=== PATIENT | female | born 1955 | race African-American/Black ===

== ENCOUNTER 2016-09-09 06:42 | Emergency (ER) | payer SELFPAY ==
[~2016-09-09] VITALS: Ht 175.3 cm; Wt 80.0 kg
[~2016-09-09 06:42] MED LIST: ASPIRIN81 MG PO; BACTRIM DS1 TAB PO; CEPHALEXIN500 MG PO; CIPROFLOXACN500 MG PO; LORTAB 10-325 M1 TAB PO; LORTAB 5/3255 MG PO; MACROBID100 MG PO; PYRIDIUM200 MG PO; TORADOL PO
[2016-09-09 07:47] LABS: HEMATOCRIT 31.6 % (37.0-47.0); HEMOGLOBIN 10.8 g/dl (12.0-16.0); IMMATURE GRANULOCYTES 0.2 % (0.0-1.0); MEAN CELL VOLUME 87.3 fL CALC (80.0-100.0); MEAN CORPUSCULAR HGB 29.8 pG CALC (26.0-32.0); MEAN CORPUSCULAR HGB CONC 34.2 g/L CALC (32.0-36.0); NEUT# 2.1 thou/uL (2.00-7.15); RED BLOOD COUNT 3.62 mill/uL (4.20-5.60); RED CELL DISTRI WIDTH 15.4 % (11.5-15.5)
[2016-09-09 08:02] LABS: URINE BILIRUBIN - DIPSTICK NEGATIVE (NEGATIVE); URINE BLOOD DIPSTICK LARGE (NEGATIVE); URINE CLARITY TURBID; URINE COLOR BROWN; URINE GLUCOSE - DIPSTICK NEGATIVE (NEGATIVE); URINE KETONE NEGATIVE (NEGATIVE); URINE NITRITE - DIPSTICK NEGATIVE (Negative); URINE PROTEIN - DIPSTICK 100 mg/dL (NEG-TRACE); URINE SPECIFIC GRAVITY 1.015
[2016-09-09 08:02] LABS: ALBUMIN 3.5 g/dL (3.2-5.0); ALKALINE PHOSPHATASE 136 u/l (38-126); ANION GAP 16 (6-22 (CALC)); BILIRUBIN, TOTAL 1.5 mg/dL (0.0-1.4); BUN 4 mg/dL (7-17); BUN/CREATININE RATIO 7 (12-20 (CALC)); CALCIUM 8.3 mg/dL (8.4-10.2); CARBON DIOXIDE 24 mmol/l (22-30); CHLORIDE 102 mmol/l (95-108); CREATININE 0.6 mg/dL (0.5-1.0); GFR > 60 ML/MIN (>=60 (CALC)); GFR FOR AFR.AMER. > 60 ML/MIN (>=60 (CALC)); GLUCOSE 118 mg/dL (65-105); SGOT/AST 200 u/l (14-36); SGPT/ALT 60 u/l (9-52); SODIUM 139 mmol/l (137-146); TOTAL PROTEIN 10.3 g/dL (6.3-8.2)
[2016-09-09 08:04] LABS: URINE LEUK ESTERASE MODERATE (NEGATIVE)
[2016-09-09 08:05] LABS: URINE BACTERIA FEW hpf; URINE RBC >100 RBC/hpf (0-5); URINE SQUAMOUS EPITHELIAL CELL FEW EPI/hpf (0-FEW)
[2016-09-09 08:06] LABS: URINE RED BLOOD CELL CAST FEW lpf
[2016-09-09 09:01] LABS: AMYLASE 111 u/l (30-110); LIPASE 177 u/l (23-300)
[2016-09-09] MEDS ORDERED: CIPROFLOXACN500 MG PO (09:38)
[2016-09-09] MEDS ORDERED: ULTRAM50 M1 PO (09:38)
[2016-09-09] MEDS ORDERED: PYRIDIUM200 MG PO (09:38)
[2016-09-09 10:35] VITALS: BP 140/84
== END 2016-09-09 10:48 | disposition home or self-care (01) | DRG 690 ==
LOC: ED 06:42
PROVIDERS: Emergency Medicine
PROC: 0T9B70Z Drainage of Bladder with Drainage Device, Via Natural or Artificial Opening (ICD-10-PCS; principal; 2016-09-09)
PROC: 0T9B70Z Drainage of Bladder with Drainage Device, Via Natural or Artificial Opening (ICD-10-PCS; 2016-09-09)
DX: N39.0 Urinary tract infection, site not specified (principal); B96.1 Klebsiella pneumoniae [K. pneumoniae] as the cause of diseases classified elsewhere; R10.2 Pelvic and perineal pain; R33.9 Retention of urine, unspecified; R30.0 Dysuria
CPT/HCPCS: Q9967

== ENCOUNTER 2016-09-09 13:43 | Emergency (ER) | payer SELFPAY ==
[~2016-09-09] VITALS: Ht 175.3 cm; Wt 75.0 kg
[~2016-09-09 13:43] MED LIST changes: +ULTRAM50 M1 PO
[2016-09-09 15:55] VITALS: BP 110/62
== END 2016-09-09 16:18 | disposition home or self-care (01) | DRG 690 ==
LOC: ED 13:43
PROC: 0T9B70Z Drainage of Bladder with Drainage Device, Via Natural or Artificial Opening (ICD-10-PCS; principal; 2016-09-09)
DX: N39.0 Urinary tract infection, site not specified (principal); R30.0 Dysuria; R33.9 Retention of urine, unspecified

== ENCOUNTER 2016-09-11 14:07 | Emergency (ER) | payer SELFPAY ==
[~2016-09-11] VITALS: Ht 175.3 cm; Wt 75.0 kg
[2016-09-11 15:16] VITALS: BP 113/72
== END 2016-09-11 15:19 | disposition home or self-care (01) | DRG 700 ==
LOC: ED 14:07
PROC: 3C1ZX8Z Irrigation of Indwelling Device using Irrigating Substance, External Approach (ICD-10-PCS; principal; 2016-09-11)
DX: T83.098A Other mechanical complication of other urinary catheter, initial encounter (principal)

== ENCOUNTER 2016-09-19 15:51 | Emergency (ER) | payer SELFPAY ==
[~2016-09-19] VITALS: Ht 175.3 cm; Wt 75.0 kg
[2016-09-19 16:39] VITALS: BP 103/65
== END 2016-09-19 17:01 | disposition home or self-care (01) | DRG 700 ==
LOC: ED 15:51
DX: Z46.6 Encounter for fitting and adjustment of urinary device (principal)

== ENCOUNTER 2016-10-17 04:55 | Emergency (ER) | payer SELFPAY ==
[~2016-10-17] VITALS: Ht 175.3 cm; Wt 167.0 kg
[2016-10-17 05:23] LABS: URINE BILIRUBIN - DIPSTICK NEGATIVE (NEGATIVE); URINE BLOOD DIPSTICK NEGATIVE (NEGATIVE); URINE COLOR YELLOW; URINE GLUCOSE - DIPSTICK NEGATIVE (NEGATIVE); URINE KETONE NEGATIVE (NEGATIVE); URINE PROTEIN - DIPSTICK NEGATIVE (NEG-TRACE)
[2016-10-17 05:24] LABS: URINE LEUK ESTERASE SMALL (NEGATIVE); URINE NITRITE - DIPSTICK POSITIVE (Negative)
[2016-10-17 05:28] LABS: URINE BACTERIA MANY hpf; URINE MUCUS FEW hpf (NONE-FEW); URINE RBC 0-2 RBC/hpf (0-5); URINE SQUAMOUS EPITHELIAL CELL FEW EPI/hpf (0-FEW)
[2016-10-17 05:29] LABS: URINE AMORPH SEDIMENT MODERATE hpf (NONE-FEW); URINE CLARITY SLIGHT CLOUDY
[2016-10-17 05:34] LABS: ALBUMIN 3.2 g/dL (3.2-5.0); ALKALINE PHOSPHATASE 218 u/l (38-126); AMYLASE 101 u/l (30-110); ANION GAP 15 (6-22 (CALC)); BILIRUBIN, TOTAL 1.8 mg/dL (0.0-1.4); BUN 5 mg/dL (7-17); BUN/CREATININE RATIO 7 (12-20 (CALC)); CALCIUM 8.1 mg/dL (8.4-10.2); CARBON DIOXIDE 26 mmol/l (22-30); CHLORIDE 109 mmol/l (95-108); CREATININE 0.6 mg/dL (0.5-1.0); GFR > 60 ML/MIN (>=60 (CALC)); GFR FOR AFR.AMER. > 60 ML/MIN (>=60 (CALC)); GLUCOSE 109 mg/dL (65-105); LIPASE 244 u/l (23-300); POTASSIUM 3.4 mmol/l (3.5-5.1); SGOT/AST 118 u/l (14-36); SGPT/ALT 43 u/l (9-52); SODIUM 146 mmol/l (137-146); TOTAL PROTEIN 9.1 g/dL (6.3-8.2)
[2016-10-17 05:39] LABS: HEMATOCRIT 30.3 % (37.0-47.0); HEMOGLOBIN 10.3 g/dl (12.0-16.0); MEAN CELL VOLUME 89.9 fL CALC (80.0-100.0); MEAN CORPUSCULAR HGB 30.6 pG CALC (26.0-32.0); NEUT# 4.78 thou/uL (2.00-7.15); RED BLOOD COUNT 3.37 mill/uL (4.20-5.60); RED CELL DISTRI WIDTH 20.4 % (11.5-15.5)
[2016-10-17] MEDS ORDERED: TRAMADOL HYDROC50 MG PO (08:17)
[2016-10-17] MEDS ORDERED: ZOFRAN ODT4 MG PO (08:17)
[2016-10-17] MEDS ORDERED: NEXIUM40 M1 PO (08:17)
[2016-10-17 08:22] VITALS: BP 127/86
== END 2016-10-17 08:49 | disposition home or self-care (01) | DRG 392 ==
LOC: ED 04:55
PROVIDERS: Emergency Medicine
DX: R10.13 Epigastric pain (principal); K70.30 Alcoholic cirrhosis of liver without ascites; R11.2 Nausea with vomiting, unspecified
CPT/HCPCS: Q9967; S0164

== ENCOUNTER 2017-05-23 09:28 | Inpatient (IN) | payer SELFPAY ==
[~2017-05-23] VITALS: Ht 175.3 cm; Wt 71.0 kg
[~2017-05-23 09:28] MED LIST changes: +NEXIUM40 M1 PO; +TRAMADOL HYDROC50 MG PO; +ZOFRAN ODT4 MG PO
--- NOTE | 2017-05-23 09:38 | NUR ---
WHEELCHAIR TO ER ROOM 14, TO BED
--- NOTE | 2017-05-23 09:46 | NUR ---
TO TX ROOM VIA W/C. ALERT.
--- NOTE | 2017-05-23 10:06 | NUR ---
BEDSIDE REPORT TO Yocasta HARRY RN , CARE RELINQUISHED
[2017-05-23 10:14] LABS: HEMATOCRIT 32.8 % (37.0-47.0); HEMOGLOBIN 11.3 g/dl (12.0-16.0); IMMATURE GRANULOCYTES 0.5 % (0.0-1.0); MEAN CELL VOLUME 91.4 fL CALC (80.0-100.0); MEAN CORPUSCULAR HGB 31.5 pG CALC (26.0-32.0); MEAN CORPUSCULAR HGB CONC 34.5 g/L CALC (32.0-36.0); NEUT# 2.48 thou/uL (2.00-7.15); RED BLOOD COUNT 3.59 mill/uL (4.20-5.60); RED CELL DISTRI WIDTH 17.2 % (11.5-15.5)
--- NOTE | 2017-05-23 10:25 | NUR ---
RECVD REPORT FROM JORGE A RAMIRES. PT SLEEPING IN BED BUT EASILY AROUSED. DISCUSSED POC WIHT PT & . NO NEEDS/ NEW CONCERNS AT THIS TIME. CALLBELL WITHIN REACH.
[2017-05-23 10:31] LABS: ALBUMIN 3.5 g/dL (3.2-5.0); ALKALINE PHOSPHATASE 143 u/l (38-126); ANION GAP 17 (6-22 (CALC)); BILIRUBIN, TOTAL 1.9 mg/dL (0.0-1.4); BUN 4 mg/dL (7-17); BUN/CREATININE RATIO 7 (12-20 (CALC)); CALCIUM 8.9 mg/dL (8.4-10.2); CARBON DIOXIDE 23 mmol/l (22-30); CHLORIDE 104 mmol/l (95-108); CREATININE 0.5 mg/dL (0.5-1.0); GFR > 60 ML/MIN (>=60 (CALC)); GFR FOR AFR.AMER. > 60 ML/MIN (>=60 (CALC)); GLUCOSE 112 mg/dL (65-105); LIPASE 172 u/l (23-300); MAGNESIUM 1.6 mg/dL (1.6-2.3); SGOT/AST 131 u/l (14-36); SGPT/ALT 38 u/l (9-52); SODIUM 141 mmol/l (137-146); TOTAL PROTEIN 9.5 g/dL (6.3-8.2)
--- NOTE | 2017-05-23 11:06 | NUR ---
, SONA , WENT TO GET SOMETHING TO EAT THEN WILL COME BACK.
--- NOTE | 2017-05-23 12:02 | NUR ---
PT IVF TAKEN OFF PUMP AND RUNNING GRAVITY BC PT KEEPS BENDING HER ARM. PT STILL DROWSY SINCE ATIVAN. SLEEPY BUT EASILY AWAKEN. ABD HARD, SWOLLEN, & TENDER. PT DENIES PAIN. DENIES N/V/D.
--- NOTE | 2017-05-23 12:35 | NUR ---
[facility] @ BEDSIDE. OUT THE DOOR AT [address] AT [facility] IN STABLE CONDITION.
--- NOTE | 2017-05-23 13:37 | NUR ---
PT STILL OUT OF UNIT FOR TESTING.
--- NOTE | 2017-05-23 16:31 | NUR ---
SBAR PRINTED TO FLOOR
--- NOTE | 2017-05-23 16:55 | NUR ---
Admission Note Report Given to: Transported by: Wheelchair X Stretcher Transported with: X Nurse Transporter X Patent IV O2 X Gre Instructor
--- NOTE | 2017-05-23 17:03 | NUR ---
female pt received to ICU bed 2 via stretcher accompanied by Yao Saab RN; pt attempt ambulation; max assist to bed d/t unsteady weak gait; admission assessment completed at this time; pt alert and oriented; c/c of abd pain for "a few weeks" and poor apetite for "a couple of months"; denies n/v; resp even and unlabored; lungs clear bilat; skin color wnl; ra; hr reg; strong pulses; no edema noted; st on monitor; abd firm/distended with bs present; pt admits to soft bm 05/23/17; admits to voiding without pain or burning; no urine to inspect at this time; #20 in lac patent with ivf infusing without complication; no redness or edema noted at site; dry flaky skin noted to chest wall, breast and bilat upper arm; pt noted to drag rle; ambulates with cane; pt admits to questionable "stroke and few months ago"; pt denies seeking medical attention but states "her sister is a nurse a told her she had a stroke"; s/o admits to wanting pt checked for "diabetes and gout" because "she may not have had a stroke"; pt is a poor historian/ sign other at bedside to assist with past history; plan of care/ ivf explained; pt encouraged to use call light; will continue to monitor
[2017-05-23 17:15] VITALS: BP 137/87
[2017-05-23 17:30] VITALS: BP 126/94
[2017-05-23 17:45] VITALS: BP 119/98
--- NOTE | 2017-05-23 17:50 | NUR ---
pt noted incont of lg loose/watery brown stool; mucus noted; specimen obtained; awaiting stool orders; pericare per functional tester typewriters; will continue to monitor
[2017-05-23 18:00] VITALS: BP 111/76
--- NOTE | 2017-05-23 18:05 | NUR ---
Dr Rice notified of pt arrival to unit; informed of potential needs; also informed pt noted with diarrhea; orders received
--- NOTE | 2017-05-23 18:12 | NUR ---
pt resting in bed; offers no complaints; s/o at bedside; no distress noted; st on monitor; iv patent; no redness or edema noted at site; bed in lowest position; call light within reach
[2017-05-23 18:51] LABS: C. DIFFICILE TOXIN A&B NEGATIVE (NEGATIVE)
--- NOTE | 2017-05-23 19:05 | NUR ---
Dr Rice at bedside;
--- NOTE | 2017-05-23 19:30 | NUR ---
PT SITTING UP IN BED. SIGNIFICANT OTHER AT BEDISDE. PT IS ALERT AND ORIENTED X3. PERRLA. RESP ARE EVEN AND UNLABORED. LUNGS ARE CLEAR. HR REGULAR. PULSES PALPABLE THROUGHOUT. NO EDEMA NOTED. BS ACTIVE. PT REPORTS A BOWEL MOVEMENT EARLIER TODAY. PT REPORTS ABD PAIN IN THE LOWER QUADRANTS. #20 LAC WITH VITAMIN BAG INFUSING AT 100CC/HR. NO REDNESS OR EDEMA NOTED AT SITE. ABD IS FIRM AND DISTENDED. WILL CONTINUE TO MONITOR
[2017-05-23 19:56] LABS: INTERNATIONAL NORMALIZED RATIO 1.6 RATIO (0.7-1.3); PROTHROMBIN TIME 18.5 SECONDS (9.0-12.5)
[2017-05-23 20:00] VITALS: BP 113/72
--- NOTE | 2017-05-23 21:12 | NUR ---
TEMP OF 101.2. DR CHANG NOTIFIED. ORDERS RECEIVED.
[2017-05-23 21:39] LABS: URINE BLOOD DIPSTICK TRACE-INTACT (NEGATIVE); URINE COLOR YELLOW; URINE GLUCOSE - DIPSTICK NEGATIVE (NEGATIVE); URINE KETONE TRACE mg/dL (NEGATIVE); URINE LEUK ESTERASE TRACE (NEGATIVE); URINE NITRITE - DIPSTICK NEGATIVE (Negative); URINE PROTEIN - DIPSTICK NEGATIVE (NEG-TRACE)
--- NOTE | 2017-05-23 21:40 | NUR ---
LAB INTO ROOM TO DRAW BLOOD CULTURES.
[2017-05-23 21:43] LABS: URINE BILIRUBIN - DIPSTICK NEGATIVE (NEGATIVE); URINE CLARITY CLEAR
[2017-05-23 22:00] VITALS: BP 121/85
--- NOTE | 2017-05-23 22:53 | NUR ---
TEMP RECHECK 100.7. ASKED PT TO REMAIN WITH JUST THE SHEET.
--- NOTE | 2017-05-23 23:43 | NUR ---
PT RESTING IN BED WITH EYES CLOSED. AROUSES TO VERBAL STIMULI. RESP ARE EVEN AND UNLABORED. NO DISTRESS NOTED. VOICES NO COMPLAINTS AT THIS TIME. TEMP RECHECK. 99.8. WILL CONTINUE TO MONITOR
[2017-05-24] VITALS (14 sets, daily range): BP systolic 111–155; BP diastolic 74–111
--- NOTE | 2017-05-24 02:04 | NUR ---
PT RESTING IN BED WITH EYES CLOSED. SIGNIFICANT OTHER AT BEDSIDE. PT AROUSES TO VERBAL STIMULI. RESP ARE EVEN AND UNLABORED. PT VOICES NO COMPLAINTS AT THIS TIME. WILL CONTINUE TO MONITOR
--- NOTE | 2017-05-24 04:00 | NUR ---
PT RESTING IN BED TALKING WITH SIGNIFICANT OTHER AT BEDSIDE. VOICES NO COMPLAINTS AT THIS TIME. IV IS POSITIONAL. WILL REMOVE AND START A NEW IV. WILL CONTINUE TO MONITOR
--- NOTE | 2017-05-24 04:09 | NUR ---
#20 PLACED IN LEFT HAND OF PATIENT X1 ATTEMPT. #20 REMOVED FROM LAC CATH TIP INTACT. PT TOLERATED WELL.
--- NOTE | 2017-05-24 04:25 | NUR ---
LAB INTO ROOM TO DRAW AM LABS
[2017-05-24 05:33] LABS: HEMATOCRIT 30.7 % (37.0-47.0); HEMOGLOBIN 10.2 g/dl (12.0-16.0); MEAN CELL VOLUME 93.6 fL CALC (80.0-100.0); MEAN CORPUSCULAR HGB 31.1 pG CALC (26.0-32.0); MEAN CORPUSCULAR HGB CONC 33.2 g/L CALC (32.0-36.0); RED BLOOD COUNT 3.28 mill/uL (4.20-5.60); RED CELL DISTRI WIDTH 18.3 % (11.5-15.5)
[2017-05-24 05:38] LABS: ALBUMIN 2.7 g/dL (3.2-5.0); ALKALINE PHOSPHATASE 81 u/l (38-126); ANION GAP 14 (6-22 (CALC)); BILIRUBIN, TOTAL 1.6 mg/dL (0.0-1.4); BUN 3 mg/dL (7-17); BUN/CREATININE RATIO 6 (12-20 (CALC)); CALCIUM 7.8 mg/dL (8.4-10.2); CARBON DIOXIDE 23 mmol/l (22-30); CHLORIDE 105 mmol/l (95-108); CREATININE 0.6 mg/dL (0.5-1.0); GFR > 60 ML/MIN (>=60 (CALC)); GFR FOR AFR.AMER. > 60 ML/MIN (>=60 (CALC)); GLUCOSE 75 mg/dL (65-105); POTASSIUM 3.2 mmol/l (3.5-5.1); SGOT/AST 89 u/l (14-36); SGPT/ALT 32 u/l (9-52); SODIUM 138 mmol/l (137-146)
[2017-05-24 05:40] LABS: INTERNATIONAL NORMALIZED RATIO 1.7 RATIO (0.7-1.3); PROTHROMBIN TIME 19.4 SECONDS (9.0-12.5)
--- NOTE | 2017-05-24 06:00 | NUR ---
PT RESTING IN BED WITH EYES CLOSED. AROUSES TO VERBAL STIMULI. RESP ARE EVEN AND UNLABORED. VOICES NO COMPLAINTS AT THIS TIME. WILL CONTINUE TO MONITOR
--- NOTE | 2017-05-24 07:01 | NUR ---
pt awake in bed; no distress noted; pt offers no complaints; assessment completed at this time; pt alert and oriented; denies pain but noted rubbing abdomen; no n/v noted; resp even and unlabored; lungs clear bilat; skin color wnl; ra; hr reg; strong pulses; no edema noted; st on monitor; abd firm/ distended with bs present; no bm noted per medical technical writer; pt admits to voiding without complication; no urine to inspect at this time; bsc; #20 in lh patent; ivf infusing without complication; no redness or edema noted at site; dry flaky skin noted to upper torso and bilat arms; plan of care/ am meds explained; call light within reach; will continue to monitor
--- NOTE | 2017-05-24 08:10 | NUR ---
am medications explained and administered; pt offers no complaints; st on monitor; s/o at bedside; call light within reach; will continue to monitor
--- NOTE | 2017-05-24 10:05 | NUR ---
resting in bed; offers no complaints; iv patent; no redness or edema noted at site; s/o at bedside; st on monitor; call light within reach; will continue to monitor
--- NOTE | 2017-05-24 10:20 | NUR ---
Dr Glass at bedside; no orders received
--- NOTE | 2017-05-24 10:30 | NUR ---
Dr Rice informed of Dr Glass's visit; orders received
--- NOTE | 2017-05-24 10:40 | NUR ---
received call from [employer]; pt is to go for HIDA scan at 1pm;
--- NOTE | 2017-05-24 10:45 | NUR ---
LJ Scales notified of Dr Glass's recommendation; LJ informed pt is not a surgical candidate and recommends paracentesis; Imer also informed of hypertension; orders to be placed; will continue to monitor
--- NOTE | 2017-05-24 10:53 | NUR ---
radiology report faxed to xray dept as per request
--- NOTE | 2017-05-24 11:50 | NUR ---
pt transferred to xray dept for paracentesis iN stable condition via wc accompanied by volunteer
--- NOTE | 2017-05-24 11:55 | NUR ---
xray dept called per publications writer in regards to low plt count; per Dorian, procedure can be done;
--- NOTE | 2017-05-24 12:35 | NUR ---
pt returned to unit in stable condition; no distress noted; monitoring equipment reapplied; s/o at bedside; sr on monitor; call light within reach; will continue to monitor
--- NOTE | 2017-05-24 14:05 | NUR ---
awake; s/o at bedside; no distress noted; st on monitor; iv patent; no redness or edema noted at site; call light within reach; will continue to monitor
--- NOTE | 2017-05-24 16:05 | NUR ---
awake; offers no complaints; no distress noted; resp even and unlabored; iv patent; no redness or edema noted at site; st on monitor; call light within reach; will continue to monitor
--- NOTE | 2017-05-24 18:26 | NUR ---
awake; s/o at bedside; no distress noted; pt offers no complaints; st on monitor; iv patent; no redness or edema noted at site; bed in lowest position; call light within reach
--- NOTE | 2017-05-24 19:30 | NUR ---
PT SITTING UP IN BED WATCHING TV. SIGNIFICANT OTHER AT BEDISDE. PT IS ALERT AND ORIENTED X3. PERRLA. RESP ARE EVEN AND UNLABORED, LUNGS ARE CLEAR. HR REGULAR. PULSES PALPABLE THROUGHOUT. NO EDEMA NOTED. BS ACTIVE. PT REPORTS A BOWEL MOVEMENT EARLIER TODAY. #20 IN LEFT HAND INFUSING LR @100CC/HR. NO REDNESS OR EDEMA NOTED AT SITE. WILL CONTINUE TO MONITOR
--- NOTE | 2017-05-24 22:00 | NUR ---
PT RESTING IN BED WITH EYES CLOSED. AROUSES TO VERBAL STIMULI. RESP ARE EVEN AND UNLABORED. NO DISTRESS NOTED. NO CHANGE IN PT STATUS. WILL CONTINUE TO MONITOR.
--- NOTE | 2017-05-24 22:45 | NUR ---
ASSISTED PT TO BSC. PT TRANSFERRED SELF BACK TO BED. WILL CONTINUE TO MONITOR
--- NOTE | 2017-05-24 23:26 | NUR ---
ASSISTED PT TO BSC. PT URINATED ON FLOOR SOME BEFORE MAKING IT TO BSC. PT ABLE TO TRANSFER SELF BACK TO BED. WILL CONTINUE TO MONITOR
[2017-05-25] VITALS: BP 100/71
--- NOTE | 2017-05-25 | NUR ---
PT RESTING IN BED ON RIGHT SIDE WITH EYES CLOSED. PT AROUSES TO VERBAL STIMULI. RESP ARE EVEN AND UNLABORED. NO DISTRESS NOTED. PT VOICES NO COMPLAINTS AT THIS TIME. WILL CONTINUE TO MONITOR
[2017-05-25 02:00] VITALS: BP 119/87; BP 150/68
--- NOTE | 2017-05-25 02:00 | NUR ---
PT RESTING IN BED WITH EYES CLOSED. PT IS AROUSED TO VERBAL STIMULI. RESP ARE EVEN AND UNLABORED. PT VOICES NO COMPLAINTS AT THIS TIME. WILL CONTINUE TO MONITOR.
[2017-05-25 04:00] VITALS: BP 122/85
[2017-05-25 05:45] LABS: HEMATOCRIT 28.1 % (37.0-47.0); HEMOGLOBIN 9.9 g/dl (12.0-16.0); MEAN CELL VOLUME 87.8 fL CALC (80.0-100.0); MEAN CORPUSCULAR HGB 30.9 pG CALC (26.0-32.0); MEAN CORPUSCULAR HGB CONC 35.2 g/L CALC (32.0-36.0); RED BLOOD COUNT 3.2 mill/uL (4.20-5.60); RED CELL DISTRI WIDTH 16.8 % (11.5-15.5)
[2017-05-25 05:48] LABS: ALBUMIN 2.5 g/dL (3.2-5.0); ALKALINE PHOSPHATASE 83 u/l (38-126); ANION GAP 11 (6-22 (CALC)); BILIRUBIN, TOTAL 1.4 mg/dL (0.0-1.4); BUN 3 mg/dL (7-17); BUN/CREATININE RATIO 6 (12-20 (CALC)); CARBON DIOXIDE 24 mmol/l (22-30); CHLORIDE 102 mmol/l (95-108); CREATININE 0.5 mg/dL (0.5-1.0); GFR > 60 ML/MIN (>=60 (CALC)); GFR FOR AFR.AMER. > 60 ML/MIN (>=60 (CALC)); GLUCOSE 90 mg/dL (65-105); POTASSIUM 3.4 mmol/l (3.5-5.1); SGOT/AST 81 u/l (14-36); SGPT/ALT 35 u/l (9-52); SODIUM 133 mmol/l (137-146); TOTAL PROTEIN 7.7 g/dL (6.3-8.2)
[2017-05-25 05:51] LABS: INTERNATIONAL NORMALIZED RATIO 1.8 RATIO (0.7-1.3); PROTHROMBIN TIME 20.2 SECONDS (9.0-12.5)
[2017-05-25 06:00] VITALS: BP 116/84
--- NOTE | 2017-05-25 07:15 | NUR ---
PT LAYING IN BED RESTING WITH EYES CLOSED, AROUSES EASILY TO VERBAL STIMULI, PT DENIES IN ABD PAIN, A & O X3, PERRL, HR 92, RESP. 18, BP 116/84, O2 100% ON RA, LUNG SOUNDS CLEAR IN ALL RIOS, 20G LH IV WITH LR INFUSING AT PRESCRIBED RATE, NO REDNESS OR DRAINAGE AT SITE, HYPERACTIVE BOWEL SOUNDS, ABD DISTENDED AND SOFT, AM ASSESSMENT COMPLETE, SEE INTERVENTIONS, SAFETY MEASURES REINFORCED, CALL CONNELLY WITHIN REACH
--- NOTE | 2017-05-25 07:35 | NUR ---
SETUP ASSISTANCE PROVIDED WITH AUGUSTIN DUBOSE
[2017-05-25 08:00] VITALS: BP 131/86
--- NOTE | 2017-05-25 09:00 | NUR ---
PT ASSISTED WITH GETTING WASHED UP, AMBULATED TO THE RECLINER WITH MINIMAL ASSISTANCE, PT TOLERATED WELL, REMINDED TO CALL FOR ASSISTANCE, CALL CONNELLY WITHIN REACH
[2017-05-25] MEDS ORDERED: PANTOPRAZOLE SO40 M1 PO (09:48)
[2017-05-25] MEDS ORDERED: LIBRIUM25 M1 PO (09:48)
[2017-05-25] MEDS ORDERED: THIAMINE HCL100 MG PO (09:48)
[2017-05-25] MEDS ORDERED: TAB-A-VITE W/1 COMBO PO (09:48)
[2017-05-25] MEDS ORDERED: KEFLEX500 MG PO (09:50)
--- NOTE | 2017-05-25 12:26 | NUR ---
Discharge instructions given. Patient verbalizes understanding of same. Discharged in stable condition via Wheelchair to taxi then Home. All belongings sent with pt.
== END 2017-05-25 12:26 | disposition home or self-care (01) | DRG 433 ==
LOC: ED 09:28 → ED-I 15:19 → ED 16:27 → ICU 16:28
PROVIDERS: Emergency Medicine; ADMIT Internal Medicine; ATTEND Internal Medicine
PROC: 0W9G3ZZ Drainage of Peritoneal Cavity, Percutaneous Approach (ICD-10-PCS; principal; 2017-05-24)
DX: K70.31 Alcoholic cirrhosis of liver with ascites (principal); D61.818 Other pancytopenia; B19.20 Unspecified viral hepatitis C without hepatic coma; K82.8 Other specified diseases of gallbladder; F10.20 Alcohol dependence, uncomplicated; F17.210 Nicotine dependence, cigarettes, uncomplicated; E87.6 Hypokalemia; E83.42 Hypomagnesemia; Z85.43 Personal history of malignant neoplasm of ovary; Z86.73 Personal history of transient ischemic attack (TIA), and cerebral infarction without residual deficits
CPT/HCPCS: J2060; S0164

== ENCOUNTER 2017-06-19 20:52 | Emergency (ER) | payer SELFPAY ==
[~2017-06-19] VITALS: Ht 175.3 cm; Wt 77.0 kg
[~2017-06-19 20:52] MED LIST changes: +KEFLEX500 MG PO; +LIBRIUM25 M1 PO; +PANTOPRAZOLE SO40 M1 PO; +TAB-A-VITE W/1 COMBO PO; +THIAMINE HCL100 MG PO
[2017-06-19 23:11] LABS: HEMATOCRIT 28.2 % (37.0-47.0); HEMOGLOBIN 9.9 g/dl (12.0-16.0); IMMATURE GRANULOCYTES 0.2 % (0.0-1.0); MEAN CELL VOLUME 91.6 fL CALC (80.0-100.0); MEAN CORPUSCULAR HGB 32.1 pG CALC (26.0-32.0); MEAN CORPUSCULAR HGB CONC 35.1 g/L CALC (32.0-36.0); NEUT# 3.28 thou/uL (2.00-7.15); RED BLOOD COUNT 3.08 mill/uL (4.20-5.60); RED CELL DISTRI WIDTH 19.1 % (11.5-15.5); URINE BILIRUBIN - DIPSTICK NEGATIVE (NEGATIVE); URINE BLOOD DIPSTICK NEGATIVE (NEGATIVE); URINE COLOR YELLOW; URINE GLUCOSE - DIPSTICK NEGATIVE (NEGATIVE); URINE KETONE NEGATIVE (NEGATIVE); URINE LEUK ESTERASE NEGATIVE (NEGATIVE); URINE NITRITE - DIPSTICK NEGATIVE (Negative); URINE PH 6.5 (4.5-8.0); URINE PROTEIN - DIPSTICK NEGATIVE (NEG-TRACE)
[2017-06-19 23:13] LABS: URINE CLARITY SL CLOUDY
[2017-06-19 23:29] LABS: ALBUMIN 2.6 g/dL (3.2-5.0); ALKALINE PHOSPHATASE 198 u/l (38-126); AMYLASE 55 u/l (30-110); ANION GAP 10 (6-22 (CALC)); BILIRUBIN, TOTAL 1.9 mg/dL (0.0-1.4); BUN 3 mg/dL (7-17); BUN/CREATININE RATIO 4 (12-20 (CALC)); CARBON DIOXIDE 24 mmol/l (22-30); CHLORIDE 106 mmol/l (95-108); CREATININE 0.6 mg/dL (0.5-1.0); GFR > 60 ML/MIN (>=60 (CALC)); GFR FOR AFR.AMER. > 60 ML/MIN (>=60 (CALC)); LIPASE 169 u/l (23-300); POTASSIUM 3.7 mmol/l (3.5-5.1); SGOT/AST 69 u/l (14-36); SGPT/ALT 38 u/l (9-52); SODIUM 137 mmol/l (137-146)
[2017-06-19 23:30] LABS: INTERNATIONAL NORMALIZED RATIO 1.6 RATIO (0.7-1.3); PROTHROMBIN TIME 17.8 SECONDS (9.0-12.5)
[2017-06-19 23:32] LABS: ETHYL ALCOHOL < 10 mg/dl (0-30)
[2017-06-20 02:07] VITALS: BP 107/75
== END 2017-06-20 02:07 | disposition home or self-care (01) | DRG 433 ==
LOC: ED 20:52
PROVIDERS: Emergency Medicine
DX: K74.60 Unspecified cirrhosis of liver (principal); R18.8 Other ascites; R11.0 Nausea; F17.210 Nicotine dependence, cigarettes, uncomplicated; Z72.89 Other problems related to lifestyle

== ENCOUNTER 2017-06-25 10:45 | Observation (INO) | payer SELFPAY ==
[~2017-06-25] VITALS: Ht 175.3 cm; Wt 71.4 kg
--- NOTE | 2017-06-25 10:45 | NUR ---
PT TO ROOM 10 VIA EMS
[2017-06-25 11:11] LABS: HEMATOCRIT 28.1 % (37.0-47.0); HEMOGLOBIN 9.5 g/dl (12.0-16.0); IMMATURE GRANULOCYTES 0.2 % (0.0-1.0); MEAN CELL VOLUME 92.7 fL CALC (80.0-100.0); MEAN CORPUSCULAR HGB 31.4 pG CALC (26.0-32.0); MEAN CORPUSCULAR HGB CONC 33.8 g/L CALC (32.0-36.0); NEUT# 2.8 thou/uL (2.00-7.15); RED BLOOD COUNT 3.03 mill/uL (4.20-5.60); RED CELL DISTRI WIDTH 19.3 % (11.5-15.5)
--- NOTE | 2017-06-25 11:30 | NUR ---
PT RETURNED FROM RADIOLOGY ADVISED OF WAIT TIME FOR TEST RESULTS. CALL LIGHT WITHINREACH.
[2017-06-25 11:32] LABS: ALBUMIN 2.7 g/dL (3.2-5.0); ALKALINE PHOSPHATASE 115 u/l (38-126); ANION GAP 13 (6-22 (CALC)); BILIRUBIN, TOTAL 2.6 mg/dL (0.0-1.4); BUN 5 mg/dL (7-17); BUN/CREATININE RATIO 7 (12-20 (CALC)); CARBON DIOXIDE 24 mmol/l (22-30); CHLORIDE 105 mmol/l (95-108); CREATININE 0.7 mg/dL (0.5-1.0); GFR > 60 ML/MIN (>=60 (CALC)); GFR FOR AFR.AMER. > 60 ML/MIN (>=60 (CALC)); LIPASE 69 u/l (23-300); SGOT/AST 58 u/l (14-36); SGPT/ALT 28 u/l (9-52); SODIUM 138 mmol/l (137-146); TOTAL PROTEIN 8.2 g/dL (6.3-8.2)
--- NOTE | 2017-06-25 12:35 | NUR ---
PT RESTING ON STRETCHER. VSS. IV SITE THEALTHY. NO C/O PAIN AWARE OF PENDING PARACENTESIS.
--- NOTE | 2017-06-25 13:20 | NUR ---
PT TO RADIOLOGY FOR PARACENTESIS. PT IN STABLE CONDITION AT THIS TIME. IV SITE HEALTHY. VSS.
--- NOTE | 2017-06-25 14:08 | NUR ---
REPORT PROVIDED TO JORGE A SEGURA, ON [employer] I/O. PT TO GO TO ROOM 283 UPON COMPLETION OF PROCEDURE FROM RADIOLOGY.
--- NOTE | 2017-06-25 14:10 | NUR ---
ALL PT BELONGINGS SENT TO ROOM 283. RN ADVISED OF ROCEPHIN IV AND BC X2 ORDERS.
[2017-06-25 14:24] VITALS: BP 145/88
--- NOTE | 2017-06-25 15:46 | NUR ---
Patient feels a little better. Denied any unusual side effectsc
--- NOTE | 2017-06-25 15:52 | NUR ---
PT ARRIVES TO ROOM 283 AWAKE, ALERT, ORIENTED, ACCOMPANIED BY . PT HAS ALREADY HAD PARACENTESIS PRIOR TO ARRIVAL, STATES THEY TOOK OFF FOUR BOTTLES. NO DISTRESS, NO COMPLAINT OF PAIN.
[2017-06-25 16:00] VITALS: BP 104/75
[2017-06-25 19:00] VITALS: BP 109/70
--- NOTE | 2017-06-25 20:00 | NUR ---
PATIENT RESTING IN BED AT THIS TIME-EASY TO AROUSE. ALERT AND ORIENTEDX3 WITH NO COMPLAINTS AT THIS TIME. HEP LOCK TO LEFT FOREARM INTACT AND APPEARS HEALTHY AT THIS TIME. PATIENT STATES THAT SHE DID HAVE A BM TONIGHT. RLQ ABD WITH DRESSING INTACT FROM PARACENTESIS SITE THAT WAS DONE TODAY. ADB IS SOFLY DISTENDED. SAFETY PRECAUTIONS REINFORCED. CALL LIGHT IN REACH. WILL CONT TO MONITOR.
--- NOTE | 2017-06-26 | NUR ---
PATIENT APPEARS SLEEPING AT THIS TIME. CALL LIGHT IN REACH. WILL CONT TO MONITOR.
[2017-06-26 04:00] VITALS: BP 92/63
--- NOTE | 2017-06-26 04:12 | NUR ---
PATIENT APPEARS SLEEPING WITH SHEET OVER HER HEAD. CALL LIGHT IN REACH. WILL CONT TO MONITOR.
[2017-06-26 04:46] LABS: URINE BILIRUBIN - DIPSTICK NEGATIVE (NEGATIVE); URINE BLOOD DIPSTICK NEGATIVE (NEGATIVE); URINE COLOR YELLOW; URINE GLUCOSE - DIPSTICK NEGATIVE (NEGATIVE); URINE KETONE NEGATIVE (NEGATIVE); URINE LEUK ESTERASE NEGATIVE (NEGATIVE); URINE NITRITE - DIPSTICK NEGATIVE (Negative); URINE PH 6.5 (4.5-8.0); URINE PROTEIN - DIPSTICK NEGATIVE (NEG-TRACE); URINE UROBILINOGEN - DIPSTICK 0.2 E.U./dL (0.2)
[2017-06-26 04:47] LABS: URINE CLARITY SL CLOUDY
[2017-06-26 05:37] LABS: ANION GAP 10 (6-22 (CALC)); BUN 4 mg/dL (7-17); BUN/CREATININE RATIO 7 (12-20 (CALC)); CARBON DIOXIDE 24 mmol/l (22-30); CHLORIDE 106 mmol/l (95-108); CREATININE 0.6 mg/dL (0.5-1.0); GFR > 60 ML/MIN (>=60 (CALC)); GFR FOR AFR.AMER. > 60 ML/MIN (>=60 (CALC)); HEMATOCRIT 26.6 % (37.0-47.0); HEMOGLOBIN 9.1 g/dl (12.0-16.0); IMMATURE GRANULOCYTES 0.2 % (0.0-1.0); MAGNESIUM 1.7 mg/dL (1.6-2.3); MEAN CELL VOLUME 92.7 fL CALC (80.0-100.0); MEAN CORPUSCULAR HGB 31.7 pG CALC (26.0-32.0); MEAN CORPUSCULAR HGB CONC 34.2 g/L CALC (32.0-36.0); NEUT# 2.45 thou/uL (2.00-7.15); POTASSIUM 3.5 mmol/l (3.5-5.1); RED BLOOD COUNT 2.87 mill/uL (4.20-5.60); RED CELL DISTRI WIDTH 18.9 % (11.5-15.5); SODIUM 136 mmol/l (137-146)
--- NOTE | 2017-06-26 08:40 | NUR ---
ASSESSMENT IS COMPLETED: PT IS RELAXING IN BED FAMILY IN THE ROOM. IV SITE IS FREE FROM REDNESS OR EDEMA. ABD IS SOFT AND DISTENDED. CONTINUE TO OSBERVE AND MONITOR.
--- NOTE | 2017-06-26 12:08 | NUR ---
PT IS RELAXING ON THE BED FAMILY IN THE ROOM. IV SITE IS FREE FROM REDNESS OR EDEMA. PT WANTING TO GO HOME STATING "I HAVE SOMETHING I NEED TO DO." CONTINUE TO OSBERVE AND MONITOR.
[2017-06-26 16:00] VITALS: BP 107/77
[2017-06-26 19:05] VITALS: BP 109/74
--- NOTE | 2017-06-26 20:11 | NUR ---
PT SITTING IN RECLINER CHAIR A/O X3, RESPIRATIONS EVEN AND UNLABORED ON RA. DENIES PAIN OR DISCOMFORT. ENCOURAGED TO USE CALL LIGHT FOR ASSISTANCE. WILL CONTINUE TO MONITOR.
--- NOTE | 2017-06-26 20:30 | NUR ---
PT RESTING WITH EYES CLOSED RESPIRATIONS EVEN AND UNLBORED ON RA, RESPONDS EASILY TO VERBAL COMMAND. A/O X3, ABDOMEN DISTENDED, BS HYPOACTIVE, 2X2 TO RIGHT ABDOMEN FROM PARACENTESIS 06/25/17. CALL LIGHT IN REACH, WILL CONTINUE TO MONITOR.
--- NOTE | 2017-06-26 23:56 | NUR ---
OOB WITH STEADY GAIT TO BATHROOM, A/O X3, RESPIRATIONS EVEN AND UNLABORED.
--- NOTE | 2017-06-27 04:00 | NUR ---
RESTING IN BED WITH EYES CLOSED, RESPIRATIONS EVEN AND UNLABORED.
[2017-06-27 04:30] VITALS: BP 100/67
[2017-06-27 05:22] LABS: HEMATOCRIT 26.1 % (37.0-47.0); HEMOGLOBIN 9.1 g/dl (12.0-16.0); IMMATURE GRANULOCYTES 0.2 % (0.0-1.0); MEAN CELL VOLUME 92.2 fL CALC (80.0-100.0); MEAN CORPUSCULAR HGB 32.2 pG CALC (26.0-32.0); MEAN CORPUSCULAR HGB CONC 34.9 g/L CALC (32.0-36.0); NEUT# 2.62 thou/uL (2.00-7.15); RED BLOOD COUNT 2.83 mill/uL (4.20-5.60); RED CELL DISTRI WIDTH 18.8 % (11.5-15.5)
[2017-06-27 05:38] LABS: ANION GAP 8 (6-22 (CALC)); BUN 4 mg/dL (7-17); BUN/CREATININE RATIO 6 (12-20 (CALC)); CARBON DIOXIDE 24 mmol/l (22-30); CHLORIDE 106 mmol/l (95-108); CREATININE 0.6 mg/dL (0.5-1.0); GFR > 60 ML/MIN (>=60 (CALC)); GFR FOR AFR.AMER. > 60 ML/MIN (>=60 (CALC)); MAGNESIUM 1.6 mg/dL (1.6-2.3); POTASSIUM 3.6 mmol/l (3.5-5.1); SODIUM 135 mmol/l (137-146)
[2017-06-27 05:40] LABS: INTERNATIONAL NORMALIZED RATIO 1.6 RATIO (0.7-1.3); PROTHROMBIN TIME 18.3 SECONDS (9.0-12.5)
--- NOTE | 2017-06-27 07:35 | NUR ---
ASSESSMENT IS COMPLTED: IV SITE IS FREE FROM REDNESS OR EDEMA . NO DISTRESS NOTED, PT IS WANTING TO GO HOME. CONTINUE TO OBSERVE AND MONITOR.
[2017-06-27] MEDS ORDERED: CELEXA20 MG PO (12:01)
[2017-06-27] MEDS ORDERED: LASIX 40 MG TAB40 MG PO (12:01)
[2017-06-27] MEDS ORDERED: ALDACTONE50 MG PO (12:01)
--- NOTE | 2017-06-27 12:42 | NUR ---
PT RECEIVED DISCHARGE INSTRUCTIONS AND VERBALIZED UNDERSTANDING, IV SITE DISCONTINUED CATHTER INTACT, NO REDNESS OR EDEMA. Discharge instructions given. Patient verbalizes understanding of same. Discharged in stable condition via Wheelchair to Home with family. All belongings sent with pt.
== END 2017-06-27 12:38 | disposition home or self-care (01) | DRG 433 ==
LOC: ED 10:45 → ED-I 13:10 → ED 13:21 → MS2 13:22
PROVIDERS: Family Medicine; Nurse Practitioner Family; ADMIT Internal Medicine; ATTEND Internal Medicine
PROC: 0W9G3ZZ Drainage of Peritoneal Cavity, Percutaneous Approach (ICD-10-PCS; principal; 2017-06-25)
DX: K70.31 Alcoholic cirrhosis of liver with ascites (principal); D61.818 Other pancytopenia; B19.20 Unspecified viral hepatitis C without hepatic coma; D64.9 Anemia, unspecified; K80.20 Calculus of gallbladder without cholecystitis without obstruction; F17.210 Nicotine dependence, cigarettes, uncomplicated; F32.9 Major depressive disorder, single episode, unspecified; Z86.73 Personal history of transient ischemic attack (TIA), and cerebral infarction without residual deficits; Z85.42 Personal history of malignant neoplasm of other parts of uterus; Z85.51 Personal history of malignant neoplasm of bladder; Z87.440 Personal history of urinary (tract) infections
CPT/HCPCS: G0378

== ENCOUNTER 2017-08-13 11:11 | Emergency (ER) | payer SELFPAY ==
[~2017-08-13] VITALS: Ht 175.3 cm; Wt 86.0 kg
[~2017-08-13 11:11] MED LIST changes: +ALDACTONE50 MG PO; +CELEXA20 MG PO; +LASIX 40 MG TAB40 MG PO
[2017-08-13 12:07] LABS: HEMATOCRIT 29.1 % (37.0-47.0); HEMOGLOBIN 9.7 g/dl (12.0-16.0); IMMATURE GRANULOCYTES 0.2 % (0.0-1.0); MEAN CELL VOLUME 93.6 fL CALC (80.0-100.0); MEAN CORPUSCULAR HGB 31.2 pG CALC (26.0-32.0); MEAN CORPUSCULAR HGB CONC 33.3 g/L CALC (32.0-36.0); NEUT# 1.67 thou/uL (2.00-7.15); RED BLOOD COUNT 3.11 mill/uL (4.20-5.60); RED CELL DISTRI WIDTH 16.1 % (11.5-15.5)
[2017-08-13 12:35] LABS: ALBUMIN 2.5 g/dL (3.2-5.0); ALKALINE PHOSPHATASE 161 u/l (38-126); ANION GAP 16 (6-22 (CALC)); BILIRUBIN, TOTAL 1.5 mg/dL (0.0-1.4); BUN 3 mg/dL (7-17); BUN/CREATININE RATIO 5 (12-20 (CALC)); CARBON DIOXIDE 24 mmol/l (22-30); CHLORIDE 105 mmol/l (95-108); CREATININE 0.6 mg/dL (0.5-1.0); GFR > 60 ML/MIN (>=60 (CALC)); GFR FOR AFR.AMER. > 60 ML/MIN (>=60 (CALC)); SGOT/AST 71 u/l (14-36); SGPT/ALT 30 u/l (9-52); SODIUM 140 mmol/l (137-146)
[2017-08-13 13:17] LABS: URINE BILIRUBIN - DIPSTICK NEGATIVE (NEGATIVE); URINE BLOOD DIPSTICK NEGATIVE (NEGATIVE); URINE COLOR YELLOW; URINE GLUCOSE - DIPSTICK NEGATIVE (NEGATIVE); URINE KETONE NEGATIVE (NEGATIVE); URINE LEUK ESTERASE NEGATIVE (NEGATIVE); URINE NITRITE - DIPSTICK NEGATIVE (Negative); URINE PH 6.5 (4.5-8.0); URINE PROTEIN - DIPSTICK NEGATIVE (NEG-TRACE)
[2017-08-13 13:20] LABS: URINE CLARITY CLEAR
[2017-08-13] MEDS ORDERED: VOLTAREN75 MG PO (13:33)
[2017-08-13 13:49] VITALS: BP 131/72
== END 2017-08-13 13:50 | disposition home or self-care (01) | DRG 434 ==
LOC: ED 11:11
PROVIDERS: Family Medicine
DX: K70.30 Alcoholic cirrhosis of liver without ascites (principal); B19.20 Unspecified viral hepatitis C without hepatic coma; F17.210 Nicotine dependence, cigarettes, uncomplicated; K80.20 Calculus of gallbladder without cholecystitis without obstruction; K70.31 Alcoholic cirrhosis of liver with ascites; M54.5 Low back pain; M54.6 Pain in thoracic spine; M25.78 Osteophyte, vertebrae

== ENCOUNTER 2017-08-13 19:43 | Emergency (ER) | payer SELFPAY ==
[~2017-08-13] VITALS: Ht 175.3 cm; Wt 86.0 kg
[~2017-08-13 19:43] MED LIST changes: +VOLTAREN75 MG PO
[2017-08-13 21:18] LABS: HEMATOCRIT 28.1 % (37.0-47.0); HEMOGLOBIN 9.5 g/dl (12.0-16.0); IMMATURE GRANULOCYTES 0.3 % (0.0-1.0); MEAN CELL VOLUME 93.7 fL CALC (80.0-100.0); MEAN CORPUSCULAR HGB 31.7 pG CALC (26.0-32.0); MEAN CORPUSCULAR HGB CONC 33.8 g/L CALC (32.0-36.0); NEUT# 2.16 thou/uL (2.00-7.15); RED CELL DISTRI WIDTH 16.2 % (11.5-15.5)
[2017-08-13 21:35] LABS: ALBUMIN 2.8 g/dL (3.2-5.0); ALKALINE PHOSPHATASE 164 u/l (38-126); AMYLASE 74 u/l (30-110); ANION GAP 17 (6-22 (CALC)); BILIRUBIN, TOTAL 1.5 mg/dL (0.0-1.4); BUN 4 mg/dL (7-17); BUN/CREATININE RATIO 7 (12-20 (CALC)); CARBON DIOXIDE 21 mmol/l (22-30); CHLORIDE 104 mmol/l (95-108); CREATININE 0.6 mg/dL (0.5-1.0); GFR > 60 ML/MIN (>=60 (CALC)); GFR FOR AFR.AMER. > 60 ML/MIN (>=60 (CALC)); LIPASE 119 u/l (23-300); SGOT/AST 70 u/l (14-36); SGPT/ALT 26 u/l (9-52); SODIUM 138 mmol/l (137-146); TOTAL PROTEIN 8.5 g/dL (6.3-8.2)
[2017-08-14 01:12] VITALS: BP 131/92
== END 2017-08-14 01:12 | disposition home or self-care (01) | DRG 552 ==
LOC: ED 19:43
PROVIDERS: Emergency Medicine
DX: M54.6 Pain in thoracic spine (principal); K70.31 Alcoholic cirrhosis of liver with ascites; F17.210 Nicotine dependence, cigarettes, uncomplicated; K80.20 Calculus of gallbladder without cholecystitis without obstruction; M25.78 Osteophyte, vertebrae

== ENCOUNTER 2017-10-09 12:36 | Observation (INO) | payer SELFPAY ==
[~2017-10-09] VITALS: Ht 175.3 cm; Wt 61.0 kg
--- NOTE | 2017-10-09 12:58 | NUR ---
PT TO ROOM VIA WC ABLE TO STAND AND TRANSFER SELF.
--- NOTE | 2017-10-09 13:23 | NUR ---
IV ESTABLISHED, LABS DRAWN. PT C/O ABD PAIN/DISTENTION WORSENING OVER 4 MONTHS. STATES HAS NOT BEEN ABLE TO EAT SINCE SATURDAY. ABD IS DISTENTED, HARD. CARDIAC WNL. RESP EVEN/UNLABORED. ACTIVE BS. PT STATES SHE IS UNABLE TO GIVE A UA SAMPLE AT THIS TIME.
[2017-10-09 13:33] LABS: HEMATOCRIT 30.3 % (37.0-47.0); HEMOGLOBIN 10.3 g/dl (12.0-16.0); IMMATURE GRANULOCYTES 0.5 % (0.0-1.0); MEAN CELL VOLUME 90.2 fL CALC (80.0-100.0); MEAN CORPUSCULAR HGB 30.7 pG CALC (26.0-32.0); NEUT# 1.89 thou/uL (2.00-7.15); RED BLOOD COUNT 3.36 mill/uL (4.20-5.60); RED CELL DISTRI WIDTH 14.4 % (11.5-15.5)
[2017-10-09 13:38] LABS: ALKALINE PHOSPHATASE 105 u/l (38-126); ANION GAP 14 (6-22 (CALC)); BILIRUBIN, TOTAL 1.4 mg/dL (0.0-1.4); BUN 3 mg/dL (7-17); BUN/CREATININE RATIO 4 (12-20 (CALC)); CARBON DIOXIDE 24 mmol/l (22-30); CHLORIDE 97 mmol/l (95-108); CREATININE 0.6 mg/dL (0.5-1.0); GFR > 60 ML/MIN (>=60 (CALC)); GFR FOR AFR.AMER. > 60 ML/MIN (>=60 (CALC)); LIPASE 115 u/l (23-300); POTASSIUM 3.5 mmol/l (3.5-5.1); SGOT/AST 75 u/l (14-36); SGPT/ALT 24 u/l (9-52); SODIUM 132 mmol/l (137-146); TOTAL PROTEIN 9.2 g/dL (6.3-8.2)
[2017-10-09] MEDS ORDERED: ADVIL200 MG PO (13:40)
[2017-10-09 13:42] LABS: INTERNATIONAL NORMALIZED RATIO 1.3 RATIO (0.7-1.3); PROTHROMBIN TIME 14.8 SECONDS (9.0-12.5)
--- NOTE | 2017-10-09 14:46 | NUR ---
PT TAKEN TO BR FOR UA SAMPLE BY WC.
--- NOTE | 2017-10-09 14:52 | NUR ---
PT TO RADIOLOGY FOR ACSITES TAP.
--- NOTE | 2017-10-09 15:15 | NUR ---
RECVING JORGE A WCB
[2017-10-09 15:17] LABS: URINE BILIRUBIN - DIPSTICK NEGATIVE (NEGATIVE); URINE BLOOD DIPSTICK NEGATIVE (NEGATIVE); URINE COLOR YELLOW; URINE GLUCOSE - DIPSTICK NEGATIVE (NEGATIVE); URINE KETONE NEGATIVE (NEGATIVE); URINE LEUK ESTERASE TRACE (NEGATIVE); URINE NITRITE - DIPSTICK NEGATIVE (Negative); URINE PROTEIN - DIPSTICK NEGATIVE (NEG-TRACE); URINE UROBILINOGEN - DIPSTICK 0.2 E.U./dL (0.2)
[2017-10-09 15:19] LABS: URINE CLARITY CLEAR
--- NOTE | 2017-10-09 15:29 | NUR ---
Admission Note Report Given to: NASEEM Transported by: X Wheelchair Stretcher Transported with: X Nurse Transporter X Patent IV O2 Sterile Tech PT CURRENTLY IN [employer]. WILL TRANSPORT PT AFTER SHE RETURNS.
--- NOTE | 2017-10-09 16:04 | NUR ---
PATIENT REFUSING MEYER CATHTER PLACEMENT. NOTIFIED
--- NOTE | 2017-10-09 16:21 | NUR ---
PT TRANSFERED TO [facility] 284 BY STRETCHER WITH TELE IN STABLE CONDITION. W/. RN IN NEW ROOM. WAS ON THE PHONE WHILE IN THE ER MAKING PLANS FOR SOMEONE TO HELP GET PT INTO HOUSE. PT STATES "SHED RATHER JUST GO HOME SINCE HER STOMACH IS BETTER NOW". PT ADVISED SHE SHOULD STAY FOR ADMISSION.
--- NOTE | 2017-10-09 16:26 | NUR ---
PT ARRIVED TO FLOOR VIA STRETCHER ACCOMPANIED BY JORGE A KAUFMAN. PT'S SIGNIFICANT OTHER PRESENT. PT TRANSFERED TO BED WITH STAFF ASSIST. UNSTEADY, WEAK GAIT NOTED. FALL PRECAUTIONS REVIEWED W/ PT. PT ORIENTED TO ROOM AND EQUIPMENT. PLAN OF CARE DISCUSSED. ALBUMIN X 5 VIALS ADMINISTERED PER ORDER. PT EDUCATED ON PARACENTESIS AND ASCITES. CALL LIGHT REVIEWED AND IN REACH. PT STATES UNDERSTANDING.
[2017-10-09 16:30] VITALS: BP 128/95
--- NOTE | 2017-10-09 17:57 | NUR ---
DR. CHANG IN TO SEE PT.
--- NOTE | 2017-10-09 19:30 | NUR ---
REPORT RECIEVED, PT RESTING IN BED WATCHING TV WITH FAMILY AT BEDSIDE. PT DENIES PAIN. TELE IN PLACE. SAFETY PRECAUTIONS REINFORCED. FREQUENT ROUNDS MADE, CALL LIGHT WITHIN REACH.
[2017-10-09 19:55] VITALS: BP 112/76
--- NOTE | 2017-10-09 21:30 | NUR ---
PT DENIES PAIN. RESP EVEN AND UNLABORED. TELE IN PLACE. LUNGS CLEAR BILAT. ABD DISTENDED,SOFT; ACTIVE BOWEL SOUNDS. RIGHT FLANK DRESSING CDI. PEDAL PULSES PALPATED BILAT. IV RAC PATENT; FLUSHED WITHOUT DIFFICULTY. NO TREMORS NOTED. CALL LIGHT WITHIN REACH.
[2017-10-09 23:20] VITALS: BP 104/75
--- NOTE | 2017-10-10 00:25 | NUR ---
PT APPEARS TO BE SLEEPING WITH EYES CLOSED. RESP EVEN AND UNLABORED. TELE ON. FAMILY AT BEDSIDE. CALL LIGHT WITHIN REACH.
--- NOTE | 2017-10-10 03:52 | NUR ---
CALLED DR BROCK IN [facility] TO PAIN MED. NO ANSWER AT THIS TIME, VOICE MESSAGE LEFT.
--- NOTE | 2017-10-10 04:28 | NUR ---
SPOKE WITH DR BROCK; NEW ORDER RECIEVED AT THIS TIME. MORPHINE 4MG IV Q4 PRN PAIN. TORB
[2017-10-10 05:38] VITALS: BP 103/72
--- NOTE | 2017-10-10 07:30 | NUR ---
REPORT RECEIVED FROM MI CHRISTENSEN. PT SITTING UPRIGHT IN BED. SLEEPING. CALL LIGHT WITHIN REACH.
[2017-10-10 08:57] VITALS: BP 91/63
[2017-10-10 11:26] VITALS: BP 94/64
--- NOTE | 2017-10-10 12:19 | NUR ---
DR. CHANG IN TO SEE PT AT THIS TIME.
--- NOTE | 2017-10-10 15:05 | NUR ---
PT REPORTS ABDOMINAL PAIN AND FEELING OF CONSTIPATION, LAST BM 10/09/17. DR. CHANG NOTIFIED ORDER FOR LACTULOSE GIVEN. LORTAB PO ADMINISTERED.
[2017-10-10 15:38] VITALS: BP 114/84
--- NOTE | 2017-10-10 15:45 | NUR ---
PT REPORTS RELIEF OF ABDOMINAL PAIN.
--- NOTE | 2017-10-10 17:26 | NUR ---
PT SITTING IN CHAIR AT BEDSIDE. EATING DINNER. NO COMPLAINTS AT THIS TIME.
[2017-10-10 19:00] VITALS: BP 106/74
--- NOTE | 2017-10-10 19:30 | NUR ---
PT AMBULATING IN ROOM. SPOUSE IN ROOM. PT IS ALERT AND ORIENTED X3. PERRLA. RESP ARE EVEN AND UNLABORED. NO DISTRESS NOTED. LUNGS ARE CLEAR. HR REGULAR. PULSES PALPABLE THROOUGHOUT. NO EDEMA NOTED. BS ACTIVE. ABD FIRM. #18 RAC SALINE LOCKED. NO REDNESS OR EDEMA NOTED. CALL LIGHT IN REACH. WILL CONTINUE TO MONITOR
[2017-10-10 23:30] VITALS: BP 99/74
--- NOTE | 2017-10-11 | NUR ---
PT RESTING IN BED WITH EYES CLOSED. SPOUSE IN ROOM. RESP ARE EVEN AND UNLABORED. NO DISTRESS NOTED. CALL LIGHT IN REACH. WILL CONTINUE TO MONITOR.
--- NOTE | 2017-10-11 03:54 | NUR ---
PT RESTING IN BED WITH EYES CLOSED. SPOUSE IN ROOM. RESP ARE EVEN AND UNLABORED. NO DSITRESS NOTED. CALL LIGHT IN REACH. WILL CONTINUE TO MONITOR
[2017-10-11 04:33] VITALS: BP 151/81; BP 87/63
[2017-10-11 06:09] LABS: HEMATOCRIT 27.1 % (37.0-47.0); HEMOGLOBIN 9.3 g/dl (12.0-16.0); IMMATURE GRANULOCYTES 0.3 % (0.0-1.0); MEAN CELL VOLUME 89.7 fL CALC (80.0-100.0); MEAN CORPUSCULAR HGB 30.8 pG CALC (26.0-32.0); MEAN CORPUSCULAR HGB CONC 34.3 g/L CALC (32.0-36.0); NEUT# 1.71 thou/uL (2.00-7.15); RED BLOOD COUNT 3.02 mill/uL (4.20-5.60); RED CELL DISTRI WIDTH 14.2 % (11.5-15.5)
[2017-10-11 06:12] LABS: ANION GAP 11 (6-22 (CALC)); BUN 4 mg/dL (7-17); BUN/CREATININE RATIO 8 (12-20 (CALC)); CARBON DIOXIDE 29 mmol/l (22-30); CHLORIDE 94 mmol/l (95-108); CREATININE 0.6 mg/dL (0.5-1.0); GFR > 60 ML/MIN (>=60 (CALC)); GFR FOR AFR.AMER. > 60 ML/MIN (>=60 (CALC)); MAGNESIUM 1.4 mg/dL (1.6-2.3); POTASSIUM 3.1 mmol/l (3.5-5.1); SODIUM 131 mmol/l (137-146)
--- NOTE | 2017-10-11 07:10 | NUR ---
REPORT RECEIVED FROM JORGE A DEMPSEY;INTRODUCED SELF TO PT AND POC DISCUSSED;RESPIRATIONS EVEN AND UNLABORED ON RA;PT DENIES ANY CURRENT PAIN OR NEEDS;PT ENCOURAGED TO CALL FOR ASSISTANCE IF NEEDED;CALL LIGHT IN REACH;WILL CONTINUE TO MONITOR
--- NOTE | 2017-10-11 08:40 | NUR ---
PT RESTING IN SUPINE POSITION WITH SPOUSE AT BEDSIDE;VS OBTAINED AND ASSESSMENT COMPLETED;RESPIRATIONS EVEN AND UNLABORED ON RA,CLEAR/DIMINISHED LUNG SOUNDS NOTED;ABDOMEN DISTENDED/FIRM ON PALPATION,HYPOACTIVE IN ALL 4 QUADRANTS;STRONG PEDAL PULSES;TELE MONITOR IN PLACE;#18G TO RAC FLUSHED AND PATENT,SITE APPEARS HEALTHY;SKIN INTACT;PT DENIES ANY CURRENT NEEDS AT THIS TIME;ENCOURAGED TO CALL FOR ASSISTANCE IF NEEDED;FALL PRECAUTIONS IN PLACE WITH CALL LIGHT IN REACH;WILL CONTINUE TO MONITOR
[2017-10-11 08:43] VITALS: BP 95/68
[2017-10-11 11:10] VITALS: BP 91/68
--- NOTE | 2017-10-11 13:00 | NUR ---
PT RESTING IN SEMI FOWLERS POSITION WITH SPOUSE AT BEDSIDE;PT DENIES ANY CURRENT PAIN OR NEEDS;RESPIRATIONS EVEN AND UNLABORED ON RA;TELE MONITOR IN PLACE;IV SITE PATENT INFUSING MAG WITH EASE;PT ENCOURAGED TO CALL FOR ASSISTANCE IF NEEDED;CALL LIGHT IN REACH;WILL CONTINUE TO MONITOR
[2017-10-11] MEDS ORDERED: METRONIDAZOL500 MG PO (13:51)
[2017-10-11] MEDS ORDERED: LORTAB5 PO (13:51)
[2017-10-11] MEDS ORDERED: CIPROFLOXACN500 MG PO (13:51)
[2017-10-11] MEDS ORDERED: CELEXA20 MG PO (13:51)
[2017-10-11] MEDS ORDERED: LIBRIUM25 M1 PO (13:51)
[2017-10-11] MEDS ORDERED: ALDACTONE50 MG PO (13:51)
[2017-10-11] MEDS ORDERED: LASIX 40 MG TAB40 MG PO (13:51)
[2017-10-11] MEDS ORDERED: KRISTALOSE20 GM PO (14:07)
--- NOTE | 2017-10-11 16:14 | NUR ---
ALL D/C INFORMATION AND PRESCRIPTIONS GIVEN AT THIS TIME;QUESTIONS ANSWERED;IV SITE REMOVED WITH CATHETER INTACT;PT DENIES ANY OTHER CURRENT NEEDS;WHEELCHAIR TO BE PROVIDED FOR D/C
--- NOTE | 2017-10-11 16:18 | NUR ---
Discharge instructions given. Patient verbalizes understanding of same. Discharged in stable condition via Wheelchair to Home with family. All belongings sent with pt.
== END 2017-10-11 16:20 | disposition home or self-care (01) | DRG 434 ==
LOC: ED 12:36 → ED-I 14:52 → ED 15:05 → MS2 15:06
PROVIDERS: Family Medicine; Nurse Practitioner Family; ADMIT Internal Medicine; ATTEND Internal Medicine
PROC: 0W9G3ZZ Drainage of Peritoneal Cavity, Percutaneous Approach (ICD-10-PCS; principal; 2017-10-09)
DX: K70.31 Alcoholic cirrhosis of liver with ascites (principal); K70.11 Alcoholic hepatitis with ascites; D64.9 Anemia, unspecified; K59.00 Constipation, unspecified; B19.20 Unspecified viral hepatitis C without hepatic coma; F17.210 Nicotine dependence, cigarettes, uncomplicated; R33.9 Retention of urine, unspecified; F10.20 Alcohol dependence, uncomplicated; Z91.14 Patient's other noncompliance with medication regimen; Z85.42 Personal history of malignant neoplasm of other parts of uterus
CPT/HCPCS: G0378; J3475; P9047

== ENCOUNTER 2017-12-03 20:09 | Observation (INO) | payer SELFPAY ==
[~2017-12-03] VITALS: Ht 175.3 cm; Wt 61.0 kg
[~2017-12-03 20:09] MED LIST changes: +ADVIL200 MG PO; +KRISTALOSE20 GM PO; +LORTAB5 PO; +METRONIDAZOL500 MG PO
[2017-12-03 21:03] LABS: HEMATOCRIT 28.3 % (37.0-47.0); HEMOGLOBIN 9.6 g/dl (12.0-16.0); IMMATURE GRANULOCYTES 0.2 % (0.0-5.0); MEAN CELL VOLUME 88.7 fL CALC (80.0-100.0); MEAN CORPUSCULAR HGB 30.1 pG CALC (26.0-32.0); MEAN CORPUSCULAR HGB CONC 33.9 g/L CALC (32.0-36.0); NEUT# 2.04 thou/uL (2.00-7.15); RED BLOOD COUNT 3.19 mill/uL (4.20-5.60); RED CELL DISTRI WIDTH 15.6 % (11.5-15.5)
[2017-12-03 21:04] LABS: URINE BILIRUBIN - DIPSTICK NEGATIVE (NEGATIVE); URINE BLOOD DIPSTICK NEGATIVE (NEGATIVE); URINE COLOR YELLOW; URINE GLUCOSE - DIPSTICK NEGATIVE (NEGATIVE); URINE KETONE NEGATIVE (NEGATIVE); URINE LEUK ESTERASE NEGATIVE (NEGATIVE); URINE NITRITE - DIPSTICK NEGATIVE (Negative); URINE PROTEIN - DIPSTICK NEGATIVE (NEG-TRACE); URINE UROBILINOGEN - DIPSTICK 0.2 E.U./dL (0.2)
[2017-12-03 21:05] LABS: URINE CLARITY CLEAR
[2017-12-03 21:16] LABS: ALKALINE PHOSPHATASE 82 u/l (38-126); ANION GAP 12 (6-22 (CALC)); BILIRUBIN, TOTAL 0.8 mg/dL (0.0-1.4); BUN 8 mg/dL (7-17); BUN/CREATININE RATIO 12 (12-20 (CALC)); CARBON DIOXIDE 25 mmol/l (22-30); CHLORIDE 99 mmol/l (95-108); CREATININE 0.6 mg/dL (0.5-1.0); GFR > 60 ML/MIN (>=60 (CALC)); GFR FOR AFR.AMER. > 60 ML/MIN (>=60 (CALC)); POTASSIUM 3.8 mmol/l (3.5-5.1); SGOT/AST 56 u/l (14-36); SGPT/ALT 28 u/l (9-52); SODIUM 132 mmol/l (137-146); TOTAL PROTEIN 8.2 g/dL (6.3-8.2)
[2017-12-03 21:24] LABS: ACT PARTIAL THROMBO TIME 30.6 SECONDS (20.0-32.5); INTERNATIONAL NORMALIZED RATIO 1.2 RATIO (0.7-1.3); PROTHROMBIN TIME 13.4 SECONDS (9.0-12.5)
[2017-12-04] VITALS: BP 116/70
[2017-12-04 04:27] VITALS: BP 99/68
[2017-12-04 08:01] VITALS: BP 90/62
[2017-12-04 08:20] LABS: HEMATOCRIT 26.3 % (37.0-47.0); MEAN CORPUSCULAR HGB 30.1 pG CALC (26.0-32.0); MEAN CORPUSCULAR HGB CONC 34.2 g/L CALC (32.0-36.0); RED BLOOD COUNT 2.99 mill/uL (4.20-5.60); RED CELL DISTRI WIDTH 15.6 % (11.5-15.5)
[2017-12-04 08:38] LABS: ANION GAP 10 (6-22 (CALC)); BUN 8 mg/dL (7-17); BUN/CREATININE RATIO 13 (12-20 (CALC)); CARBON DIOXIDE 24 mmol/l (22-30); CHLORIDE 100 mmol/l (95-108); CREATININE 0.6 mg/dL (0.5-1.0); GFR > 60 ML/MIN (>=60 (CALC)); GFR FOR AFR.AMER. > 60 ML/MIN (>=60 (CALC)); MAGNESIUM 1.7 mg/dL (1.6-2.3); POTASSIUM 3.9 mmol/l (3.5-5.1); SODIUM 131 mmol/l (137-146)
[2017-12-04 15:50] VITALS: BP 107/71
[2017-12-04 20:20] VITALS: BP 96/67
[2017-12-05 03:36] VITALS: BP 90/63
[2017-12-05 05:11] LABS: HEMATOCRIT 28.2 % (37.0-47.0); HEMOGLOBIN 9.6 g/dl (12.0-16.0); IMMATURE GRANULOCYTES 0.6 % (0.0-5.0); MEAN CELL VOLUME 87.9 fL CALC (80.0-100.0); MEAN CORPUSCULAR HGB 29.9 pG CALC (26.0-32.0); NEUT# 1.58 thou/uL (2.00-7.15); RED BLOOD COUNT 3.21 mill/uL (4.20-5.60); RED CELL DISTRI WIDTH 15.5 % (11.5-15.5)
[2017-12-05 05:22] LABS: ANION GAP 10 (6-22 (CALC)); BUN 9 mg/dL (7-17); BUN/CREATININE RATIO 13 (12-20 (CALC)); CARBON DIOXIDE 26 mmol/l (22-30); CHLORIDE 100 mmol/l (95-108); CREATININE 0.7 mg/dL (0.5-1.0); GFR > 60 ML/MIN (>=60 (CALC)); GFR FOR AFR.AMER. > 60 ML/MIN (>=60 (CALC)); MAGNESIUM 1.7 mg/dL (1.6-2.3); POTASSIUM 3.9 mmol/l (3.5-5.1); SODIUM 132 mmol/l (137-146)
[2017-12-05 08:43] VITALS: BP 81/40
[2017-12-05 10:21] VITALS: BP 80/58
[2017-12-05 11:08] VITALS: BP 73/56
[2017-12-05] MEDS ORDERED: ALDACTONE50 MG PO (12:20)
[2017-12-05] MEDS ORDERED: PANTOPRAZOLE SO40 M1 PO (12:20)
[2017-12-05] MEDS ORDERED: LASIX 40 MG TAB40 MG PO (12:20)
[2017-12-05] MEDS ORDERED: CELEXA20 MG PO (12:20)
[2017-12-05] MEDS ORDERED: LACTULOSE10 GM/15 M PO (12:20)
[2017-12-05] MEDS ORDERED: FE TABS325 MG PO (12:21)
[2017-12-05 14:55] VITALS: BP 81/59
== END 2017-12-05 18:25 | disposition home or self-care (01) | DRG 433 ==
LOC: ED 20:09 → ED-I 23:35 → ED 12-04 00:02 → MS2 12-04 00:03
PROVIDERS: Emergency Medicine; Nurse Practitioner Family; ADMIT Internal Medicine; ATTEND Internal Medicine
PROC: 0W9G3ZZ Drainage of Peritoneal Cavity, Percutaneous Approach (ICD-10-PCS; principal; 2017-12-04)
DX: K70.31 Alcoholic cirrhosis of liver with ascites (principal); D61.818 Other pancytopenia; E87.1 Hypo-osmolality and hyponatremia; B19.20 Unspecified viral hepatitis C without hepatic coma; F10.20 Alcohol dependence, uncomplicated; D50.9 Iron deficiency anemia, unspecified; F17.210 Nicotine dependence, cigarettes, uncomplicated; K80.20 Calculus of gallbladder without cholecystitis without obstruction; Z85.42 Personal history of malignant neoplasm of other parts of uterus
CPT/HCPCS: G0378; P9047

== ENCOUNTER 2017-12-23 12:01 | Emergency (ER) | payer SELFPAY ==
[~2017-12-23] VITALS: Ht 175.3 cm; Wt 70.0 kg
[~2017-12-23 12:01] MED LIST changes: +FE TABS325 MG PO; +LACTULOSE10 GM/15 M PO
[2017-12-23 12:40] LABS: HEMATOCRIT 27.1 % (37.0-47.0); HEMOGLOBIN 9.2 g/dl (12.0-16.0); IMMATURE GRANULOCYTES 0.5 % (0.0-5.0); MEAN CELL VOLUME 90.3 fL CALC (80.0-100.0); MEAN CORPUSCULAR HGB 30.7 pG CALC (26.0-32.0); MEAN CORPUSCULAR HGB CONC 33.9 g/L CALC (32.0-36.0); NEUT# 2.18 thou/uL (2.00-7.15); RED CELL DISTRI WIDTH 16.4 % (11.5-15.5)
[2017-12-23 12:44] LABS: ALBUMIN 2.8 g/dL (3.2-5.0); ALKALINE PHOSPHATASE 74 u/l (38-126); ANION GAP 11 (6-22 (CALC)); BILIRUBIN, TOTAL 1.2 mg/dL (0.0-1.4); BUN 9 mg/dL (7-17); BUN/CREATININE RATIO 15 (12-20 (CALC)); CARBON DIOXIDE 25 mmol/l (22-30); CHLORIDE 104 mmol/l (95-108); CREATININE 0.6 mg/dL (0.5-1.0); GFR > 60 ML/MIN (>=60 (CALC)); GFR FOR AFR.AMER. > 60 ML/MIN (>=60 (CALC)); LIPASE 117 u/l (23-300); POTASSIUM 4.4 mmol/l (3.5-5.1); SGOT/AST 45 u/l (14-36); SGPT/ALT 22 u/l (9-52); SODIUM 136 mmol/l (137-146); TOTAL PROTEIN 7.5 g/dL (6.3-8.2)
[2017-12-23] MEDS ORDERED: RISPERIDONE2 MG PO (12:44)
[2017-12-23 13:18] LABS: INTERNATIONAL NORMALIZED RATIO 1.2 RATIO (0.7-1.3); PROTHROMBIN TIME 13.4 SECONDS (9.0-12.5)
[2017-12-23 18:15] VITALS: BP 115/83
[2017-12-23 18:17] LABS: URINE BILIRUBIN - DIPSTICK NEGATIVE (NEGATIVE); URINE BLOOD DIPSTICK NEGATIVE (NEGATIVE); URINE COLOR YELLOW; URINE GLUCOSE - DIPSTICK NEGATIVE (NEGATIVE); URINE KETONE NEGATIVE (NEGATIVE); URINE NITRITE - DIPSTICK NEGATIVE (Negative); URINE PROTEIN - DIPSTICK NEGATIVE (NEG-TRACE); URINE UROBILINOGEN - DIPSTICK 0.2 E.U./dL (0.2)
[2017-12-23 18:18] LABS: URINE CLARITY CLEAR; URINE LEUK ESTERASE SMALL (NEGATIVE)
[2017-12-23 18:30] LABS: URINE RBC 0-2 RBC/hpf (0-5); URINE SQUAMOUS EPITHELIAL CELL FEW EPI/hpf (0-FEW)
== END 2017-12-23 18:22 | disposition home or self-care (01) | DRG 948 ==
LOC: ED 12:01 → ED-I 13:22 → ED 18:22
PROVIDERS: Family Medicine
PROC: 0W9G3ZZ Drainage of Peritoneal Cavity, Percutaneous Approach (ICD-10-PCS; principal; 2017-12-23)
DX: R18.8 Other ascites (principal); K74.60 Unspecified cirrhosis of liver; B19.20 Unspecified viral hepatitis C without hepatic coma; Z85.42 Personal history of malignant neoplasm of other parts of uterus
CPT/HCPCS: P9047

== ENCOUNTER 2018-01-04 00:41 | Emergency (ER) | payer SELFPAY ==
[~2018-01-04] VITALS: Ht 175.3 cm; Wt 71.0 kg
[~2018-01-04 00:41] MED LIST changes: +RISPERIDONE2 MG PO
[2018-01-04] MEDS ORDERED: TRAMADOL HCL50 MG PO (01:08)
[2018-01-04 01:13] VITALS: BP 112/78
== END 2018-01-04 01:24 | disposition home or self-care (01) | DRG 434 ==
LOC: ED 00:41
DX: K70.31 Alcoholic cirrhosis of liver with ascites (principal); B19.20 Unspecified viral hepatitis C without hepatic coma; F10.20 Alcohol dependence, uncomplicated

== ENCOUNTER 2018-01-10 10:46 | Emergency (ER) | payer SELFPAY ==
[~2018-01-10] VITALS: Ht 175.3 cm; Wt 80.0 kg
[~2018-01-10 10:46] MED LIST changes: +TRAMADOL HCL50 MG PO
[2018-01-10 12:29] LABS: HEMATOCRIT 26.2 % (37.0-47.0); HEMOGLOBIN 8.9 g/dl (12.0-16.0); IMMATURE GRANULOCYTES 0.2 % (0.0-5.0); MEAN CORPUSCULAR HGB 30.9 pG CALC (26.0-32.0); NEUT# 2.2 thou/uL (2.00-7.15); RED BLOOD COUNT 2.88 mill/uL (4.20-5.60); RED CELL DISTRI WIDTH 16.1 % (11.5-15.5)
[2018-01-10 12:47] LABS: ALBUMIN 2.9 g/dL (3.2-5.0); ALKALINE PHOSPHATASE 122 u/l (38-126); ANION GAP 13 (6-22 (CALC)); BILIRUBIN, TOTAL 0.7 mg/dL (0.0-1.4); BUN 6 mg/dL (7-17); BUN/CREATININE RATIO 8 (12-20 (CALC)); CARBON DIOXIDE 27 mmol/l (22-30); CHLORIDE 102 mmol/l (95-108); CREATININE 0.7 mg/dL (0.5-1.0); GFR > 60 ML/MIN (>=60 (CALC)); GFR FOR AFR.AMER. > 60 ML/MIN (>=60 (CALC)); LIPASE 118 u/l (23-300); POTASSIUM 4.2 mmol/l (3.5-5.1); SGOT/AST 48 u/l (14-36); SGPT/ALT 29 u/l (9-52); SODIUM 138 mmol/l (137-146); TOTAL PROTEIN 7.4 g/dL (6.3-8.2)
[2018-01-10 14:01] VITALS: BP 101/78
== END 2018-01-10 14:06 | disposition home or self-care (01) | DRG 392 ==
LOC: ED 10:46
PROVIDERS: Family Medicine
DX: R10.9 Unspecified abdominal pain (principal); R18.8 Other ascites; K74.60 Unspecified cirrhosis of liver; B19.20 Unspecified viral hepatitis C without hepatic coma

== ENCOUNTER 2018-01-13 08:02 | Emergency (ER) | payer SELFPAY ==
[~2018-01-13] VITALS: Ht 175.3 cm; Wt 80.0 kg
[2018-01-13 08:49] LABS: HEMATOCRIT 29.4 % (37.0-47.0); HEMOGLOBIN 9.8 g/dl (12.0-16.0); IMMATURE GRANULOCYTES 0.2 % (0.0-5.0); MEAN CELL VOLUME 92.2 fL CALC (80.0-100.0); MEAN CORPUSCULAR HGB 30.7 pG CALC (26.0-32.0); MEAN CORPUSCULAR HGB CONC 33.3 g/L CALC (32.0-36.0); NEUT# 2.18 thou/uL (2.00-7.15); RED BLOOD COUNT 3.19 mill/uL (4.20-5.60); RED CELL DISTRI WIDTH 15.5 % (11.5-15.5)
[2018-01-13 09:01] LABS: ALBUMIN 2.9 g/dL (3.2-5.0); ALKALINE PHOSPHATASE 90 u/l (38-126); ANION GAP 12 (6-22 (CALC)); BILIRUBIN, TOTAL 1.3 mg/dL (0.0-1.4); BUN 7 mg/dL (7-17); BUN/CREATININE RATIO 10 (12-20 (CALC)); CARBON DIOXIDE 27 mmol/l (22-30); CHLORIDE 98 mmol/l (95-108); CREATININE 0.7 mg/dL (0.5-1.0); GFR > 60 ML/MIN (>=60 (CALC)); GFR FOR AFR.AMER. > 60 ML/MIN (>=60 (CALC)); POTASSIUM 3.4 mmol/l (3.5-5.1); SGOT/AST 44 u/l (14-36); SGPT/ALT 26 u/l (9-52); SODIUM 134 mmol/l (137-146); TOTAL PROTEIN 7.8 g/dL (6.3-8.2)
[2018-01-13 09:07] LABS: INTERNATIONAL NORMALIZED RATIO 1.2 RATIO (0.7-1.3); PROTHROMBIN TIME 13.3 SECONDS (9.0-12.5)
[2018-01-13 13:26] VITALS: BP 115/83
== END 2018-01-13 13:46 | disposition home or self-care (01) | DRG 948 ==
LOC: ED 08:02
PROVIDERS: Family Medicine
PROC: 0W9G3ZZ Drainage of Peritoneal Cavity, Percutaneous Approach (ICD-10-PCS; principal; 2018-01-13)
DX: R18.8 Other ascites (principal); R10.84 Generalized abdominal pain; Z72.89 Other problems related to lifestyle; K75.9 Inflammatory liver disease, unspecified
CPT/HCPCS: P9047

== ENCOUNTER 2018-02-03 06:12 | Emergency (ER) | payer SELFPAY ==
[~2018-02-03] VITALS: Ht 175.3 cm; Wt 76.0 kg
[2018-02-03 07:27] LABS: HEMATOCRIT 29.1 % (37.0-47.0); HEMOGLOBIN 9.6 g/dl (12.0-16.0); IMMATURE GRANULOCYTES 0.4 % (0.0-5.0); MEAN CELL VOLUME 93.6 fL CALC (80.0-100.0); MEAN CORPUSCULAR HGB 30.9 pG CALC (26.0-32.0); NEUT# 2.98 thou/uL (2.00-7.15); RED BLOOD COUNT 3.11 mill/uL (4.20-5.60); RED CELL DISTRI WIDTH 15.2 % (11.5-15.5)
[2018-02-03 07:42] LABS: ANION GAP 10 (6-22 (CALC)); BUN 9 mg/dL (7-17); BUN/CREATININE RATIO 15 (12-20 (CALC)); CARBON DIOXIDE 26 mmol/l (22-30); CHLORIDE 103 mmol/l (95-108); CREATININE 0.6 mg/dL (0.5-1.0); GFR > 60 ML/MIN (>=60 (CALC)); GFR FOR AFR.AMER. > 60 ML/MIN (>=60 (CALC)); SODIUM 135 mmol/l (137-146)
[2018-02-03 07:43] LABS: POTASSIUM 4.1 mmol/l (3.5-5.1)
[2018-02-03 12:25] VITALS: BP 99/73
== END 2018-02-03 12:50 | disposition home or self-care (01) | DRG 434 ==
LOC: ED 06:12
PROVIDERS: Family Medicine
PROC: 0W9G3ZZ Drainage of Peritoneal Cavity, Percutaneous Approach (ICD-10-PCS; principal; 2018-02-03)
DX: K70.31 Alcoholic cirrhosis of liver with ascites (principal); B19.20 Unspecified viral hepatitis C without hepatic coma; F17.210 Nicotine dependence, cigarettes, uncomplicated
CPT/HCPCS: P9047

== ENCOUNTER 2018-02-11 23:49 | Emergency (ER) | payer MEDICAID ==
[~2018-02-11] VITALS: Ht 175.3 cm; Wt 76.0 kg
[2018-02-12 00:36] LABS: HEMOGLOBIN 10.8 g/dl (12.0-16.0); IMMATURE GRANULOCYTES 0.2 % (0.0-5.0); MEAN CELL VOLUME 91.4 fL CALC (80.0-100.0); MEAN CORPUSCULAR HGB 30.9 pG CALC (26.0-32.0); MEAN CORPUSCULAR HGB CONC 33.8 g/L CALC (32.0-36.0); NEUT# 2.28 thou/uL (2.00-7.15); RED BLOOD COUNT 3.5 mill/uL (4.20-5.60); RED CELL DISTRI WIDTH 14.5 % (11.5-15.5)
[2018-02-12 00:48] LABS: ALKALINE PHOSPHATASE 101 u/l (38-126); AMYLASE 71 u/l (30-110); ANION GAP 12 (6-22 (CALC)); BILIRUBIN, TOTAL 0.6 mg/dL (0.0-1.4); BUN 7 mg/dL (7-17); BUN/CREATININE RATIO 9 (12-20 (CALC)); CARBON DIOXIDE 26 mmol/l (22-30); CHLORIDE 101 mmol/l (95-108); CREATININE 0.7 mg/dL (0.5-1.0); GFR > 60 ML/MIN (>=60 (CALC)); GFR FOR AFR.AMER. > 60 ML/MIN (>=60 (CALC)); LIPASE 126 u/l (23-300); POTASSIUM 4.2 mmol/l (3.5-5.1); SGPT/ALT 36 u/l (9-52); SODIUM 135 mmol/l (137-146); TOTAL PROTEIN 7.4 g/dL (6.3-8.2)
[2018-02-12 00:51] LABS: SGOT/AST 82 u/l (14-36)
[2018-02-12] MEDS ORDERED: ULTRAM50 M1 PO (01:24)
[2018-02-12 01:38] LABS: URINE BILIRUBIN - DIPSTICK NEGATIVE (NEGATIVE); URINE BLOOD DIPSTICK NEGATIVE (NEGATIVE); URINE CLARITY SL CLOUDY; URINE COLOR YELLOW; URINE GLUCOSE - DIPSTICK NEGATIVE (NEGATIVE); URINE KETONE NEGATIVE (NEGATIVE); URINE LEUK ESTERASE NEGATIVE (NEGATIVE); URINE NITRITE - DIPSTICK NEGATIVE (Negative); URINE PROTEIN - DIPSTICK NEGATIVE (NEG-TRACE); URINE SPECIFIC GRAVITY <=1.005; URINE UROBILINOGEN - DIPSTICK 0.2 E.U./dL (0.2)
[2018-02-12 01:43] LABS: BARBITURATES NEGATIVE (NEGATIVE); COCAINE NEGATIVE (NEGATIVE); METHADONE NEGATIVE (NEGATIVE); OXCYCODONE NEGATIVE (NEGATIVE); TETRAHYDROCANNABIONOL NEGATIVE (NEGATIVE); TRICYLIC ANTIDEPRESSANTS NEGATIVE (NEGATIVE)
[2018-02-12 01:50] VITALS: BP 116/81
[2018-02-13] MEDS ORDERED: SPIRONOLACTONE50 MG PO (08:39)
== END 2018-02-12 01:50 | disposition home or self-care (01) ==
LOC: ED 23:49
PROVIDERS: Emergency Medicine
DX: K70.31 Alcoholic cirrhosis of liver with ascites (principal); F10.10 Alcohol abuse, uncomplicated; Z85.41 Personal history of malignant neoplasm of cervix uteri; R10.33 Periumbilical pain

== ENCOUNTER 2018-02-13 08:04 | Emergency (ER) | payer MEDICAID ==
[~2018-02-13] VITALS: Ht 175.3 cm; Wt 65.0 kg
[2018-02-13] MEDS ORDERED: SPIRONOLACTONE50 MG PO (08:39)
[2018-02-13 09:12] LABS: HEMATOCRIT 33.1 % (37.0-47.0); IMMATURE GRANULOCYTES 0.4 % (0.0-5.0); MEAN CELL VOLUME 92.5 fL CALC (80.0-100.0); MEAN CORPUSCULAR HGB 30.7 pG CALC (26.0-32.0); MEAN CORPUSCULAR HGB CONC 33.2 g/L CALC (32.0-36.0); NEUT# 2.41 thou/uL (2.00-7.15); RED BLOOD COUNT 3.58 mill/uL (4.20-5.60); RED CELL DISTRI WIDTH 14.3 % (11.5-15.5)
[2018-02-13 09:28] LABS: ANION GAP 16 (6-22 (CALC)); BUN 7 mg/dL (7-17); BUN/CREATININE RATIO 12 (12-20 (CALC)); CARBON DIOXIDE 23 mmol/l (22-30); CHLORIDE 102 mmol/l (95-108); CREATININE 0.6 mg/dL (0.5-1.0); GFR > 60 ML/MIN (>=60 (CALC)); GFR FOR AFR.AMER. > 60 ML/MIN (>=60 (CALC)); POTASSIUM 4.6 mmol/l (3.5-5.1); SODIUM 136 mmol/l (137-146)
[2018-02-13 15:48] VITALS: BP 107/74
== END 2018-02-13 16:05 | disposition home or self-care (01) ==
LOC: ED 08:04
PROVIDERS: Family Medicine
DX: K70.31 Alcoholic cirrhosis of liver with ascites (principal); B19.20 Unspecified viral hepatitis C without hepatic coma; Z85.42 Personal history of malignant neoplasm of other parts of uterus; R06.02 Shortness of breath; R10.84 Generalized abdominal pain
CPT/HCPCS: P9047

== ENCOUNTER 2018-02-19 02:33 | Emergency (ER) | payer MEDICAID ==
[~2018-02-19] VITALS: Ht 175.3 cm; Wt 63.4 kg
[~2018-02-19 02:33] MED LIST changes: +SPIRONOLACTONE50 MG PO
[2018-02-19 03:10] LABS: HEMOGLOBIN 8.9 g/dl (12.0-16.0); MEAN CELL VOLUME 93.1 fL CALC (80.0-100.0); MEAN CORPUSCULAR HGB 30.7 pG CALC (26.0-32.0); NEUT# 2.47 thou/uL (2.00-7.15); RED BLOOD COUNT 2.9 mill/uL (4.20-5.60); RED CELL DISTRI WIDTH 14.4 % (11.5-15.5)
[2018-02-19 03:21] LABS: ALBUMIN 2.4 g/dL (3.2-5.0); ALKALINE PHOSPHATASE 132 u/l (38-126); AMYLASE 91 u/l (30-110); ANION GAP 9 (6-22 (CALC)); BILIRUBIN, TOTAL 0.5 mg/dL (0.0-1.4); BUN 12 mg/dL (7-17); BUN/CREATININE RATIO 17 (12-20 (CALC)); CARBON DIOXIDE 27 mmol/l (22-30); CHLORIDE 100 mmol/l (95-108); CREATININE 0.7 mg/dL (0.5-1.0); GFR > 60 ML/MIN (>=60 (CALC)); GFR FOR AFR.AMER. > 60 ML/MIN (>=60 (CALC)); LIPASE 237 u/l (23-300); POTASSIUM 4.6 mmol/l (3.5-5.1); SGOT/AST 55 u/l (14-36); SODIUM 132 mmol/l (137-146); TOTAL PROTEIN 6.1 g/dL (6.3-8.2)
[2018-02-19 03:53] VITALS: BP 95/71
== END 2018-02-19 03:57 | disposition home or self-care (01) ==
LOC: ED 02:33
PROVIDERS: Emergency Medicine
DX: R10.33 Periumbilical pain (principal); K74.60 Unspecified cirrhosis of liver; R18.8 Other ascites; B19.20 Unspecified viral hepatitis C without hepatic coma

== ENCOUNTER 2018-02-23 19:38 | Emergency (ER) | payer MEDICAID ==
[~2018-02-23] VITALS: Ht 175.3 cm; Wt 68.0 kg
[2018-02-23] MEDS ORDERED: AMOX/K CLAV875 M1 PO (20:00)
[2018-02-23] MEDS ORDERED: PERCOCET 5/325M1 TAB PO (20:27)
[2018-02-23 21:15] VITALS: BP 100/75
== END 2018-02-23 20:47 | disposition home or self-care (01) ==
LOC: ED 19:38
DX: R10.84 Generalized abdominal pain (principal); R18.8 Other ascites; K74.60 Unspecified cirrhosis of liver

== ENCOUNTER 2018-03-09 23:40 | Emergency (ER) | payer MEDICAID ==
[~2018-03-09] VITALS: Ht 175.3 cm; Wt 72.0 kg
[~2018-03-09 23:40] MED LIST changes: +AMOX/K CLAV875 M1 PO; +PERCOCET 5/325M1 TAB PO
[2018-03-10 01:05] VITALS: BP 97/74
== END 2018-03-10 01:14 | disposition home or self-care (01) ==
LOC: ED 23:40
DX: K70.31 Alcoholic cirrhosis of liver with ascites (principal); B19.20 Unspecified viral hepatitis C without hepatic coma

== ENCOUNTER 2018-04-08 10:18 | Emergency (ER) | payer MEDICAID ==
[~2018-04-08] VITALS: Ht 175.3 cm; Wt 73.2 kg
[2018-04-08] MEDS ORDERED: ATIVAN0.5 MG PO (10:38)
[2018-04-08 11:03] VITALS: BP 109/76
== END 2018-04-08 11:08 | disposition home or self-care (01) ==
LOC: ED 10:18
DX: K70.31 Alcoholic cirrhosis of liver with ascites (principal); R10.84 Generalized abdominal pain; B19.20 Unspecified viral hepatitis C without hepatic coma

== ENCOUNTER 2018-04-13 21:07 | Emergency (ER) | payer MEDICAID ==
[~2018-04-13] VITALS: Ht 175.3 cm; Wt 73.2 kg
[~2018-04-13 21:07] MED LIST changes: +ATIVAN0.5 MG PO
[2018-04-13 21:57] LABS: HEMATOCRIT 26.4 % (37.0-47.0); HEMOGLOBIN 8.7 g/dl (12.0-16.0); IMMATURE GRANULOCYTES 0.5 % (0.0-5.0); MEAN CELL VOLUME 90.1 fL CALC (80.0-100.0); MEAN CORPUSCULAR HGB 29.7 pG CALC (26.0-32.0); NEUT# 2.35 thou/uL (2.00-7.15); RED BLOOD COUNT 2.93 mill/uL (4.20-5.60); RED CELL DISTRI WIDTH 14.5 % (11.5-15.5)
[2018-04-13 22:40] LABS: ALBUMIN 2.5 g/dL (3.2-5.0); ALKALINE PHOSPHATASE 80 u/l (38-126); ANION GAP 9 (6-22 (CALC)); BILIRUBIN, TOTAL 0.5 mg/dL (0.0-1.4); BUN 9 mg/dL (8-23); BUN/CREATININE RATIO 13 (12-20 (CALC)); CARBON DIOXIDE 27 mmol/l (22-30); CHLORIDE 101 mmol/l (95-108); CREATININE 0.7 mg/dL (0.5-1.0); ETHYL ALCOHOL < 10 mg/dl (0-30); GFR > 60 ML/MIN (>=60 (CALC)); GFR FOR AFR.AMER. > 60 ML/MIN (>=60 (CALC)); POTASSIUM 3.4 mmol/l (3.5-5.1); SGOT/AST 34 u/l (9-36); SODIUM 134 mmol/l (137-146); TOTAL PROTEIN 6.5 g/dL (6.3-8.2)
[2018-04-13 22:58] LABS: URINE BILIRUBIN - DIPSTICK NEGATIVE (NEGATIVE); URINE BLOOD DIPSTICK NEGATIVE (NEGATIVE); URINE COLOR YELLOW; URINE GLUCOSE - DIPSTICK NEGATIVE (NEGATIVE); URINE KETONE NEGATIVE (NEGATIVE); URINE NITRITE - DIPSTICK NEGATIVE (Negative); URINE PROTEIN - DIPSTICK NEGATIVE (NEG-TRACE); URINE SPECIFIC GRAVITY 1.015
[2018-04-13 22:59] LABS: URINE CLARITY SL CLOUDY; URINE LEUK ESTERASE SMALL (NEGATIVE)
[2018-04-13 23:04] LABS: BARBITURATES NEGATIVE (NEGATIVE); COCAINE NEGATIVE (NEGATIVE); METHADONE NEGATIVE (NEGATIVE); OXCYCODONE NEGATIVE (NEGATIVE); TETRAHYDROCANNABIONOL NEGATIVE (NEGATIVE); TRICYLIC ANTIDEPRESSANTS NEGATIVE (NEGATIVE)
[2018-04-13 23:08] LABS: URINE RBC 0-2 RBC/hpf (0-5)
[2018-04-13 23:09] LABS: URINE MUCUS FEW hpf (NONE-FEW); URINE SQUAMOUS EPITHELIAL CELL MANY EPI/hpf (0-FEW)
[2018-04-13 23:49] VITALS: BP 147/89
== END 2018-04-13 23:53 | disposition home or self-care (01) ==
LOC: ED 21:07
PROVIDERS: Family Medicine
DX: K70.31 Alcoholic cirrhosis of liver with ascites (principal); R10.84 Generalized abdominal pain

== ENCOUNTER 2018-07-09 09:24 | Outpatient (REF) | payer MEDICAID ==
[2018-07-09 14:16] VITALS: BP 115/89
== END 2018-07-09 14:28 | disposition home or self-care (01) ==
LOC: INF 09:24 → ULTRASND 09:24 → INF 14:28 → ULTRASND 07-15 13:00
PROVIDERS: ATTEND Family Medicine
DX: K70.31 Alcoholic cirrhosis of liver with ascites (principal)
CPT/HCPCS: P9047

== ENCOUNTER 2018-08-06 09:03 | Outpatient (REF) | payer MEDICAID ==
[2018-08-06 13:55] VITALS: BP 116/82
== END 2018-08-06 15:07 | disposition home or self-care (01) ==
LOC: ULTRASND 09:03 → INF 09:03 → ULTRASND 09:30 → INF 15:07
PROVIDERS: ATTEND Family Medicine
DX: K70.31 Alcoholic cirrhosis of liver with ascites (principal)
CPT/HCPCS: P9047

== ENCOUNTER 2018-09-21 14:57 | Emergency (ER) | payer MEDICAID ==
[~2018-09-21] VITALS: Ht 175.3 cm; Wt 56.0 kg
[2018-09-21 15:38] LABS: HEMOGLOBIN 10.5 g/dl (12.0-16.0); IMMATURE GRANULOCYTES 0.5 % (0.0-5.0); MEAN CELL VOLUME 87.9 fL CALC (80.0-100.0); MEAN CORPUSCULAR HGB 28.2 pG CALC (26.0-32.0); MEAN CORPUSCULAR HGB CONC 32.1 g/L CALC (32.0-36.0); NEUT# 2.63 thou/uL (2.00-7.15); RED BLOOD COUNT 3.72 mill/uL (4.20-5.60); RED CELL DISTRI WIDTH 15.6 % (11.5-15.5)
[2018-09-21 15:49] LABS: HEMATOCRIT 32.7 % (37.0-47.0)
[2018-09-21 16:39] LABS: ALBUMIN 2.8 g/dL (3.2-5.0); ANION GAP 13 (6-22 (CALC)); BUN 7 mg/dL (8-23); BUN/CREATININE RATIO 12 (12-20 (CALC)); CARBON DIOXIDE 23 mmol/l (22-30); CHLORIDE 104 mmol/l (95-108); CREATININE 0.6 mg/dL (0.5-1.0); GFR > 60 ML/MIN (>=60 (CALC)); GFR FOR AFR.AMER. > 60 ML/MIN (>=60 (CALC)); LIPASE 185 u/l (23-300); SODIUM 137 mmol/l (137-146); TOTAL PROTEIN 6.5 g/dL (6.3-8.2)
[2018-09-21 16:40] LABS: ALKALINE PHOSPHATASE 239 u/l (38-126); BILIRUBIN, TOTAL 1.4 mg/dL (0.0-1.4); SGOT/AST 188 u/l (9-36)
[2018-09-21 17:34] LABS: URINE BILIRUBIN - DIPSTICK NEGATIVE (NEGATIVE); URINE BLOOD DIPSTICK NEGATIVE (NEGATIVE); URINE COLOR YELLOW; URINE GLUCOSE - DIPSTICK NEGATIVE (NEGATIVE); URINE KETONE NEGATIVE (NEGATIVE); URINE LEUK ESTERASE NEGATIVE (NEGATIVE); URINE NITRITE - DIPSTICK NEGATIVE (Negative); URINE PH 5.5 (4.5-8.0); URINE PROTEIN - DIPSTICK NEGATIVE (NEG-TRACE); URINE UROBILINOGEN - DIPSTICK 0.2 E.U./dL (0.2)
[2018-09-21 17:35] LABS: BARBITURATES NEGATIVE (NEGATIVE); COCAINE NEGATIVE (NEGATIVE); METHADONE NEGATIVE (NEGATIVE); OXCYCODONE NEGATIVE (NEGATIVE); TETRAHYDROCANNABIONOL NEGATIVE (NEGATIVE); TRICYLIC ANTIDEPRESSANTS NEGATIVE (NEGATIVE)
[2018-09-21] MEDS ORDERED: PROTONIX40 M2 PO (17:43)
[2018-09-21 18:00] VITALS: BP 159/77
== END 2018-09-21 18:12 | disposition home or self-care (01) ==
LOC: ED 14:57
PROVIDERS: Emergency Medicine
DX: R10.84 Generalized abdominal pain (principal); K70.31 Alcoholic cirrhosis of liver with ascites
CPT/HCPCS: S0164

== ENCOUNTER 2018-11-21 21:02 | Emergency (ER) | payer MEDICAID ==
[~2018-11-21] VITALS: Ht 175.3 cm; Wt 69.0 kg
[~2018-11-21 21:02] MED LIST changes: +OMEPRAZOLE20 M2 PO; +PROTONIX40 M2 PO
[2018-11-21 21:44] LABS: HEMATOCRIT 30.7 % (37.0-47.0); HEMOGLOBIN 9.8 g/dl (12.0-16.0); IMMATURE GRANULOCYTES 0.4 % (0.0-5.0); MEAN CELL VOLUME 86.7 fL CALC (80.0-100.0); MEAN CORPUSCULAR HGB 27.7 pG CALC (26.0-32.0); MEAN CORPUSCULAR HGB CONC 31.9 g/L CALC (32.0-36.0); NEUT# 2.54 thou/uL (2.00-7.15); RED BLOOD COUNT 3.54 mill/uL (4.20-5.60); RED CELL DISTRI WIDTH 15.7 % (11.5-15.5)
[2018-11-21 22:08] LABS: PROTHROMBIN TIME 10.7 SECONDS (9.0-12.5)
[2018-11-21 22:11] LABS: ALBUMIN 3.3 g/dL (3.2-5.0); ALKALINE PHOSPHATASE 122 u/l (38-126); AMYLASE 78 u/l (30-110); BILIRUBIN, TOTAL 0.7 mg/dL (0.0-1.4); BUN 12 mg/dL (8-23); BUN/CREATININE RATIO 19 (12-20 (CALC)); CHLORIDE 101 mmol/l (95-108); CREATININE 0.7 mg/dL (0.5-1.0); GFR > 60 ML/MIN (>=60 (CALC)); GFR FOR AFR.AMER. > 60 ML/MIN (>=60 (CALC)); LIPASE 251 u/l (23-300); SGOT/AST 44 u/l (9-36); SODIUM 138 mmol/l (137-146); TOTAL PROTEIN 7.5 g/dL (6.3-8.2)
[2018-11-21 22:12] LABS: ANION GAP 12 (6-22 (CALC)); CARBON DIOXIDE 28 mmol/l (22-30)
[2018-11-21 22:30] LABS: URINE BILIRUBIN - DIPSTICK NEGATIVE (NEGATIVE); URINE BLOOD DIPSTICK NEGATIVE (NEGATIVE); URINE COLOR YELLOW; URINE GLUCOSE - DIPSTICK NEGATIVE (NEGATIVE); URINE KETONE NEGATIVE (NEGATIVE); URINE LEUK ESTERASE NEGATIVE (NEGATIVE); URINE NITRITE - DIPSTICK NEGATIVE (Negative); URINE PH 5.5 (4.5-8.0); URINE PROTEIN - DIPSTICK NEGATIVE (NEG-TRACE); URINE SPECIFIC GRAVITY 1.015
[2018-11-22 01:15] VITALS: BP 92/68
== END 2018-11-22 01:15 | disposition home or self-care (01) ==
LOC: ED 21:02
PROVIDERS: Family Medicine
DX: K42.9 Umbilical hernia without obstruction or gangrene (principal); K70.31 Alcoholic cirrhosis of liver with ascites; R10.33 Periumbilical pain
CPT/HCPCS: Q9967

== ENCOUNTER 2018-12-04 12:49 | Observation (INO) | payer MEDICAID ==
[~2018-12-04] VITALS: Ht 175.3 cm; Wt 75.0 kg
--- NOTE | 2018-12-04 13:09 | NUR ---
PT TO ROOM IN NO DISTRESS
[2018-12-04 13:40] LABS: HEMOGLOBIN 9.3 g/dl (12.0-16.0); IMMATURE GRANULOCYTES 0.4 % (0.0-5.0); MEAN CELL VOLUME 84.3 fL CALC (80.0-100.0); MEAN CORPUSCULAR HGB CONC 33.2 g/L CALC (32.0-36.0); NEUT# 2.18 thou/uL (2.00-7.15); RED BLOOD COUNT 3.32 mill/uL (4.20-5.60); RED CELL DISTRI WIDTH 15.9 % (11.5-15.5)
[2018-12-04 13:57] LABS: ALKALINE PHOSPHATASE 105 u/l (38-126); ANION GAP 12 (6-22 (CALC)); BILIRUBIN, TOTAL 0.5 mg/dL (0.0-1.4); BUN 6 mg/dL (8-23); BUN/CREATININE RATIO 10 (12-20 (CALC)); CARBON DIOXIDE 24 mmol/l (22-30); CHLORIDE 103 mmol/l (95-108); CREATININE 0.6 mg/dL (0.5-1.0); ETHYL ALCOHOL 172 mg/dl (0-30); GFR > 60 ML/MIN (>=60 (CALC)); GFR FOR AFR.AMER. > 60 ML/MIN (>=60 (CALC)); POTASSIUM 3.5 mmol/l (3.5-5.1); SGOT/AST 46 u/l (9-36); SODIUM 135 mmol/l (137-146); TOTAL PROTEIN 7.3 g/dL (6.3-8.2)
--- NOTE | 2018-12-04 14:00 | NUR ---
MEDICATED FOR RT HAND PAIN 11/26, ICE APPLIED. ATTEMPTED TO REPOSITION. PT INTERMITTENTLY CRIES AND STATES "I THOUGHT THEY WERE GONNA HELP ME". PT STATES SHE HAD QUIT DRINKING ALCOHOL FOR 4 MONTHS BUT HAS BEEN DRINKING AGAIN X2 WEEKS
--- NOTE | 2018-12-04 14:07 | NUR ---
PT STATES "I DONT TAKE MY MEDICINE IT f---S ME UP". PT STATES SHE HAS NOT TAKEN ANY OF HER MEDS IN WEEKS.
--- NOTE | 2018-12-04 14:27 | NUR ---
EDP AT BEDSIDE TO DISCUSS CLINICAL FINDINGS.
--- NOTE | 2018-12-04 14:38 | NUR ---
PT TOLERATED ORTHOSTATIC VS WITHOUT COMPLAINT. MD UPDATED ON VS. PT AWARE OF ADMIT AND AGREEABLE.
--- NOTE | 2018-12-04 14:43 | NUR ---
SPLINT APPLIED TO RT WRIST/HAND.PT TOLERATED WELL. BRISK CAPILLARY REFILL TO RT HAND
--- NOTE | 2018-12-04 14:47 | NUR ---
CALL PLACED TO DIETARY FOR LUNCH TRAY
--- NOTE | 2018-12-04 15:47 | NUR ---
PT RESTING IN NO DISTRESS. CONSUMED 75 % OF LUNCH TRAY
--- NOTE | 2018-12-04 16:18 | NUR ---
TRANSPORTE TO [place] VIA ON TELE IN NO DISTRESS
--- NOTE | 2018-12-04 16:22 | NUR ---
RECEIVED PT VIA STRETCHER WITH ER NURSE. PT AMBULATED FROM STRETCHER TO SCALE TO BED WITH SL UNSTEADY GAIT. ADMISSION ASSESSMENT COMPLETE. LARGE UMBILICAL HERNIA AND ASCITES NOTED. BOWEL SOUNDS ACTIVE. PT STATES PAIN MED GIVEN IN ER HELPED. PT TEARFUL, STATES SHE JUST DOES NOT KNOW WHATS GOING ON ANYMORE AT HOME, STATES SHE HAS BEEN STRESSED ABOUT HAVING ABDOMINAL HERNIA REPAIR AND INSURANCE NOT COVERING ETC, STATES HER DIET 7 MONTHS AGO AND SHE IS NOT TAKING CARE OF HER 15 YEAR OLD GRAND DAUGTER. ORIENTED TO CALL LIGHTS AND ROOM. DISCUSSED PLAN OF CARE. PT DENIES ANY NEEDS AT THIS TIME.
[2018-12-04 16:51] VITALS: BP 96/71
--- NOTE | 2018-12-04 17:51 | NUR ---
DR TALBERT IN TO SEE PT.
--- NOTE | 2018-12-04 18:00 | NUR ---
PT SITTING ON SIDE OF BED EATING DINNER. DENIES ANY NEEDS.
--- NOTE | 2018-12-04 19:07 | NUR ---
REPORT RECEIVED FROM JORGE A FORRESTER. PT RESTING IN BED, FRIEND AT BEDSIDE VISITING. NO S/S OF DISTRESS AT THIS TIME. WILL CONTINUE TO MONITOR.
[2018-12-04 19:55] VITALS: BP 100/72
--- NOTE | 2018-12-04 20:30 | NUR ---
PT RESTING IN BED. ALERT AND ORIENTED. GRANDAUGHTER AT BEDSIDE ATAYING THE NIGHT. TELE IN PLACE. REPIRATIONS EVEN AND UNLABORED. LUNG SOUND CLEAR. IV #20 LAC, PATENT AND APPEARS HEALTHY. PT REPORTS HAVING PAIN IN HER HAND BEING AN 8/10, PT TO BE MEDICATED. SAFETY PRECAUTIONS IN PLACE. WILL CONTINUE TO MONITOR.
[2018-12-05 00:13] VITALS: BP 99/51
--- NOTE | 2018-12-05 00:59 | NUR ---
PT RESTING IN BED WITH EYES CLOSED. RESPIRATIONS EVEN AND UNLABORED ON RA. TELE IN PLACE. NO S/S OF DISTRESS AT THIS TIME. WILL CONTINUE TO MONITOR.
[2018-12-05 04:35] VITALS: BP 101/74
--- NOTE | 2018-12-05 05:49 | NUR ---
PT RESTING IN BED, GRANDAUGHTER AT BEDSIDE. NO S/S OF DISTRESS AT THIS TIME. TELE IN PLACE. WILL CONTINUE TO MONITOR.
--- NOTE | 2018-12-05 06:45 | NUR ---
RECIEVED REPORT FROM JORGE A THOMPSON. ASSUMED PT CARE.
[2018-12-05 07:56] LABS: URINE BILIRUBIN - DIPSTICK NEGATIVE (NEGATIVE); URINE BLOOD DIPSTICK NEGATIVE (NEGATIVE); URINE COLOR YELLOW; URINE GLUCOSE - DIPSTICK NEGATIVE (NEGATIVE); URINE KETONE NEGATIVE (NEGATIVE); URINE LEUK ESTERASE TRACE (NEGATIVE); URINE NITRITE - DIPSTICK NEGATIVE (Negative); URINE PROTEIN - DIPSTICK NEGATIVE (NEG-TRACE); URINE SPECIFIC GRAVITY <=1.005; URINE UROBILINOGEN - DIPSTICK 0.2 E.U./dL (0.2)
[2018-12-05 07:57] LABS: BARBITURATES NEGATIVE (NEGATIVE); COCAINE NEGATIVE (NEGATIVE); METHADONE NEGATIVE (NEGATIVE); OXCYCODONE NEGATIVE (NEGATIVE); TETRAHYDROCANNABIONOL NEGATIVE (NEGATIVE); TRICYLIC ANTIDEPRESSANTS NEGATIVE (NEGATIVE)
[2018-12-05 08:15] VITALS: BP 105/81
--- NOTE | 2018-12-05 08:15 | NUR ---
PT RESTING IN BED, WATCHING TV. ASSESSMENT COMPLETED. PT STATING SHE WANTS TO LEAVE. PT EDUCATED ON STAYING TO SEE DR. RAJIHA. ROYAL AT BEDSIDE. PT DENIES CHEST PAIN, SOB OR DISTRESS NOTED AT THIS TIME.
--- NOTE | 2018-12-05 10:50 | NUR ---
IV site discontinued, cath intact. No edema , no redness, voices no discomfort.
--- NOTE | 2018-12-05 10:55 | NUR ---
Discharge instructions given. Patient verbalizes understanding of same. Discharged in stable condition via Ambulatory to Against Medical Advice with family. All belongings sent with pt.
== END 2018-12-05 10:55 | disposition left against medical advice (07) ==
LOC: ED 12:49 → ED-I 14:18 → ED 14:52 → MS2 14:53
PROVIDERS: Family Medicine; ADMIT Internal Medicine; ATTEND Internal Medicine
DX: R55 Syncope and collapse (principal); F10.229 Alcohol dependence with intoxication, unspecified; K70.31 Alcoholic cirrhosis of liver with ascites; K70.11 Alcoholic hepatitis with ascites; K42.9 Umbilical hernia without obstruction or gangrene; B19.20 Unspecified viral hepatitis C without hepatic coma; M25.531 Pain in right wrist; R51 Headache; F32.9 Major depressive disorder, single episode, unspecified; F17.200 Nicotine dependence, unspecified, uncomplicated; Y90.6 Blood alcohol level of 120-199 mg/100 ml; W18.30XA Fall on same level, unspecified, initial encounter; Y92.008 Other place in unspecified non-institutional (private) residence as the place of occurrence of the external cause
CPT/HCPCS: G0378

== ENCOUNTER 2019-02-18 08:37 | Emergency (ER) | payer MEDICAID ==
[~2019-02-18] VITALS: Ht 175.3 cm; Wt 75.0 kg
[2019-02-18] MEDS ORDERED: LACTULOSE10 GM/15 M PO (09:06)
[2019-02-18] MEDS ORDERED: FUROSEMIDE80 M1 PO (09:06)
[2019-02-18 09:35] LABS: ACT PARTIAL THROMBO TIME 28.2 SECONDS (20.0-32.5); INTERNATIONAL NORMALIZED RATIO 1.1 RATIO (0.7-1.3); PROTHROMBIN TIME 11.4 SECONDS (9.0-12.5)
[2019-02-18 09:37] LABS: ALBUMIN 3.6 g/dL (3.2-5.0); ALKALINE PHOSPHATASE 137 u/l (38-126); ANION GAP 14 (6-22 (CALC)); BILIRUBIN, TOTAL 0.5 mg/dL (0.0-1.4); BUN 9 mg/dL (8-23); BUN/CREATININE RATIO 16 (12-20 (CALC)); CARBON DIOXIDE 24 mmol/l (22-30); CHLORIDE 103 mmol/l (95-108); CREATININE 0.6 mg/dL (0.5-1.0); GFR > 60 ML/MIN (>=60 (CALC)); GFR FOR AFR.AMER. > 60 ML/MIN (>=60 (CALC)); POTASSIUM 3.6 mmol/l (3.5-5.1); SODIUM 137 mmol/l (137-146); TOTAL PROTEIN 8.3 g/dL (6.3-8.2)
[2019-02-18 09:39] LABS: SGOT/AST 89 u/l (9-36)
[2019-02-18 10:53] LABS: HEMATOCRIT 33.1 % (37.0-47.0); HEMOGLOBIN 10.8 g/dl (12.0-16.0); IMMATURE GRANULOCYTES 0.5 % (0.0-5.0); MEAN CORPUSCULAR HGB 28.1 pG CALC (26.0-32.0); MEAN CORPUSCULAR HGB CONC 32.6 g/L CALC (32.0-36.0); NEUT# 1.97 thou/uL (2.00-7.15); RED BLOOD COUNT 3.85 mill/uL (4.20-5.60); RED CELL DISTRI WIDTH 15.1 % (11.5-15.5)
[2019-02-18 11:53] LABS: URINE BILIRUBIN - DIPSTICK NEGATIVE (NEGATIVE); URINE BLOOD DIPSTICK NEGATIVE (NEGATIVE); URINE COLOR YELLOW; URINE GLUCOSE - DIPSTICK NEGATIVE (NEGATIVE); URINE KETONE NEGATIVE (NEGATIVE); URINE LEUK ESTERASE NEGATIVE (NEGATIVE); URINE NITRITE - DIPSTICK NEGATIVE (Negative); URINE PH 6.5 (4.5-8.0); URINE PROTEIN - DIPSTICK NEGATIVE (NEG-TRACE); URINE SPECIFIC GRAVITY <=1.005; URINE UROBILINOGEN - DIPSTICK 0.2 E.U./dL (0.2)
[2019-02-18] MEDS ORDERED: TYLENOL # 31 TA1 PO (12:22)
[2019-02-18 13:08] VITALS: BP 114/73
[2019-02-19] MEDS ORDERED: OMEPRAZOLE20 MG PO (14:22)
== END 2019-02-18 13:08 | disposition home or self-care (01) ==
LOC: ED 08:37
PROVIDERS: Family Medicine
DX: F10.229 Alcohol dependence with intoxication, unspecified (principal); K70.31 Alcoholic cirrhosis of liver with ascites; K42.9 Umbilical hernia without obstruction or gangrene; B19.20 Unspecified viral hepatitis C without hepatic coma; F17.200 Nicotine dependence, unspecified, uncomplicated
CPT/HCPCS: Q9967

== ENCOUNTER 2019-02-19 13:42 | Inpatient (IN) | payer MEDICAID ==
[2019-02-19] VITALS (8 sets, daily range): BP systolic 103–145; BP diastolic 74–100
[~2019-02-19] VITALS: Ht 175.3 cm; Wt 63.8 kg
[~2019-02-19 13:42] MED LIST changes: +FUROSEMIDE80 M1 PO; +TYLENOL # 31 TA1 PO
--- NOTE | 2019-02-19 13:42 | NUR ---
PT TO ROOM VIA EMS. BEDSIDE TRIAGE COMPLETE
--- NOTE | 2019-02-19 13:50 | NUR ---
PT ARRIVES VIA EMS ALERT AND ORIENTED WITH 10/10 UMBILICAL PAIN WITH BULGING UMBILICAL HERNIA.
--- NOTE | 2019-02-19 14:17 | NUR ---
MEDICATED FOR PAIN 02/26 MID ABD. PT MOANING IN PAIN. EDP AT BEDSIDE AND DISCUSSED POC AND NEED FOR SURGERY. PT AGREEABLE. PT DECLINES HAVINF NURSEA CALL AND NOTIFY FAMILY.
--- NOTE | 2019-02-19 14:21 | NUR ---
SBAR PRINTED TO FLOOR
[2019-02-19] MEDS ORDERED: OMEPRAZOLE20 MG PO (14:22)
--- NOTE | 2019-02-19 14:26 | NUR ---
OR NURSES AT BEDSIDE
[2019-02-19 14:27] LABS: HEMATOCRIT 36.9 % (37.0-47.0); HEMOGLOBIN 12.1 g/dl (12.0-16.0); IMMATURE GRANULOCYTES 0.2 % (0.0-5.0); MEAN CELL VOLUME 83.1 fL CALC (80.0-100.0); MEAN CORPUSCULAR HGB 27.3 pG CALC (26.0-32.0); MEAN CORPUSCULAR HGB CONC 32.8 g/L CALC (32.0-36.0); NEUT# 6.49 thou/uL (2.00-7.15); RED BLOOD COUNT 4.44 mill/uL (4.20-5.60); RED CELL DISTRI WIDTH 14.9 % (11.5-15.5)
--- NOTE | 2019-02-19 14:28 | NUR ---
PT REPORTS ABD PAIN REDUCED TO 4/10 AT THIS TIME. CONT IVF INFUSING WITHOUT DIFFICULTY.
--- NOTE | 2019-02-19 14:29 | NUR ---
LEFT IN CARE OF OR STAFF VIA STRETCHER. ALERT AND CONVERSIVE.
[2019-02-19 14:47] LABS: ALBUMIN 4.2 g/dL (3.2-5.0); ALKALINE PHOSPHATASE 142 u/l (38-126); ANION GAP 17 (6-22 (CALC)); BUN 9 mg/dL (8-23); BUN/CREATININE RATIO 17 (12-20 (CALC)); CARBON DIOXIDE 25 mmol/l (22-30); CHLORIDE 93 mmol/l (95-108); CREATININE 0.5 mg/dL (0.5-1.0); GFR > 60 ML/MIN (>=60 (CALC)); GFR FOR AFR.AMER. > 60 ML/MIN (>=60 (CALC)); LIPASE 31 u/l (23-300); POTASSIUM 4.1 mmol/l (3.5-5.1); SGOT/AST 81 u/l (9-36); SODIUM 131 mmol/l (137-146); TOTAL PROTEIN 9.5 g/dL (6.3-8.2)
[2019-02-19 14:55] LABS: BILIRUBIN, TOTAL 1.3 mg/dL (0.0-1.4)
--- NOTE | 2019-02-19 17:50 | NUR ---
PT ARRIVED FROM OR VIA BED WITH STAFF, IV SITE INTACT. JOSE TY
--- NOTE | 2019-02-19 18:00 | NUR ---
PT ASSESSMENT IS COMPLETED: IV SITE IS FREE FROM REDNESS OR EDEMA, HR IS REG,PULSES ARE STRONG X4, ABD IS SOFT AND DISTENDED, WITH ABD BINDER, DRESSING INTACT, BREATH SOUNDS ARE CLEAR BILATERALLY. SCD'S IN PLACE. CONTINUE TO OBSERVE AND MONITOR.
--- NOTE | 2019-02-19 18:10 | NUR ---
PT COUNTED HOME MEDS WITH STAFF, SIGNED THE PAPER FOR NARCOTICS.
--- NOTE | 2019-02-19 19:15 | NUR ---
REPORT RECEIVED FROM MI SHEPARD. PT RESTING IN BED SEMI FOWLERS; ALERT AND ORIENTED X 3. DENIES PAIN CURRENTLY, BUT DOES REPORT ABDOMINAL SORENESS EXACERBATED WITH NON PRODUCTIVE COUGH; PILLOW PROVIDED FOR SPLINTING. RESPIRATIONS EVEN AND UNLABORED ON OXYGEN 3L VIA NC; OXYGEN SATURATIONS 99% AND OXYGEN REMOVED AT THIS TIME; WILL MONITOR PT ON ROOM AIR. PERRLA. LUNGS CLEAR. ABDOMEN WITH ABD/TAPED MIDLINE DRESSING CDI WITH ABDOMINAL BINDER IN PLACE; BOWEL SOUNDS HYPOACTIVE. MEYER 16F DRAINING CLEAR YELLOW URINE; LEG STARP IN PLACE TO RIGHT THIGH. SCD'S INTACT TO BLE. IS AT BEDSIDE; PT INSTRUCTED AGAIN ON USE AND PT STATES UNDERSTANDING. PLAN OF CARE REVIEWED. PT ENCOURAGED TO VERBALIZE CONCERNS; REQUESTS ICE CHIPS AT THIS TIME. STATES UNDERSTANDING. SAFETY MEASURES IN PLACE. CALL LIGHT WITHIN REACH.
--- NOTE | 2019-02-19 21:22 | NUR ---
SIGNIFICANT OTHER AT BEDSIDE. PT HAS NO REQUESTS AT THIS TIME. SPO2 97% ON ROOM AIR.
--- NOTE | 2019-02-19 23:49 | NUR ---
PT RESTING IN BED TALKING ON CELL PHONE; NO REQUESTS OR CONCERNS AT THIS TIME. C/O SAME SORENESS TO ABDOMEN; DECLINES PAIN MEDICATION AT THIS TIME. IV FLUIDS INFUSING WITHOUT DIFFICULTY; EMS IV SITE APPEARS HEALTHY. WILL CONTINUE TO MONITOR.
[2019-02-20] VITALS (10 sets, daily range): BP systolic 93–126; BP diastolic 76–87
--- NOTE | 2019-02-20 01:11 | NUR ---
URINE OBTAINED FROM MEYER AND SENT TO LAB.
[2019-02-20 01:56] LABS: URINE BILIRUBIN - DIPSTICK NEGATIVE (NEGATIVE); URINE BLOOD DIPSTICK NEGATIVE (NEGATIVE); URINE COLOR YELLOW; URINE GLUCOSE - DIPSTICK NEGATIVE (NEGATIVE); URINE KETONE NEGATIVE (NEGATIVE); URINE LEUK ESTERASE NEGATIVE (NEGATIVE); URINE NITRITE - DIPSTICK NEGATIVE (Negative); URINE PH 6.5 (4.5-8.0); URINE PROTEIN - DIPSTICK TRACE mg/dL (NEG-TRACE); URINE UROBILINOGEN - DIPSTICK 0.2 E.U./dL (0.2)
--- NOTE | 2019-02-20 05:21 | NUR ---
PT CALLED REQUESTING PAIN MEDICATION FOR ABDOMINAL PAIN 11/26; DILAUDID GIVEN WITH GOOD EFFECT. EMS SITE D/C'D AND NEW SITE PLACED TO [facility]. LABS DRAWN AND SENT TO LAB. PT DECLINES AM CARE AT THIS TIME.
--- NOTE | 2019-02-20 05:36 | NUR ---
RECIVED REPORT FROM ICU NURSE. PT BROUGHT OVER VIA WHEELCHAIR IN STABLE CONDITION WITH ICU STAFF x2. PT AMBULATED WITH STANDBY ASSIST. MEYER DRAININGT CLEAR YERLLOW URINE. ABD BINDER IN PLACE. VITAL SIGNS OBTAINED. NO NEEDS ZAT THIS TIME. WILL CONTINUE TO MONITOR.
[2019-02-20 05:50] LABS: HEMATOCRIT 31.9 % (37.0-47.0); HEMOGLOBIN 10.3 g/dl (12.0-16.0); IMMATURE GRANULOCYTES 0.2 % (0.0-5.0); MEAN CELL VOLUME 84.8 fL CALC (80.0-100.0); MEAN CORPUSCULAR HGB 27.4 pG CALC (26.0-32.0); MEAN CORPUSCULAR HGB CONC 32.3 g/L CALC (32.0-36.0); NEUT# 7.13 thou/uL (2.00-7.15); RED BLOOD COUNT 3.76 mill/uL (4.20-5.60); RED CELL DISTRI WIDTH 14.8 % (11.5-15.5)
[2019-02-20 06:05] LABS: ALKALINE PHOSPHATASE 83 u/l (38-126); ANION GAP 11 (6-22 (CALC)); BUN 8 mg/dL (8-23); BUN/CREATININE RATIO 16 (12-20 (CALC)); CARBON DIOXIDE 24 mmol/l (22-30); CHLORIDE 99 mmol/l (95-108); CREATININE 0.5 mg/dL (0.5-1.0); GFR > 60 ML/MIN (>=60 (CALC)); GFR FOR AFR.AMER. > 60 ML/MIN (>=60 (CALC)); POTASSIUM 3.5 mmol/l (3.5-5.1); SGOT/AST 45 u/l (9-36); SODIUM 131 mmol/l (137-146)
[2019-02-20 06:08] LABS: ALBUMIN 2.8 g/dL (3.2-5.0); BILIRUBIN, TOTAL 0.7 mg/dL (0.0-1.4); TOTAL PROTEIN 6.8 g/dL (6.3-8.2)
--- NOTE | 2019-02-20 07:40 | NUR ---
ASSESSMENT IS COMPLTED: IV SITE IS FREE FROM REDNESS OR EDEMA. HR IS REG,PULSES ARE STRONG X4, ABD IS SOFT/DISTENDED WITH DRESSING INTACT AND COVERED WITH ABD BINDER. BREATH SOUNDS ARE CLEAR,BILATERALLY. CONTINUE TO OSBERVE AND MONITOR. MEYER DRAINING TRISTON URINE,
--- NOTE | 2019-02-20 09:55 | NUR ---
AND IN TO VISIT WITH PT.
--- NOTE | 2019-02-20 12:00 | NUR ---
PT IS RELAXING IN BED WITH NO DISTRESS NOTED. IV SITE IS FREE FROM REDNESS OR EDEMA
--- NOTE | 2019-02-20 12:30 | NUR ---
CALLED RE: TRANSFER TO MED/SURG, " WILL DO WHEN HE GETS HOME".
--- NOTE | 2019-02-20 13:04 | NUR ---
PT HAS A VISITOR IN THE ROOM ASKED IF SHE CAN HAVE THIS PERSON REMOVED FROM HER ROOM IF SHE ASKS. INFORMED "YES WE CAN".
--- NOTE | 2019-02-20 14:30 | NUR ---
CALLED CHARLENE CUNNINGHAM RE: TRANSFER ORDERS WAS AT [facility] WILL TRY AND DO SOMEHTING AT HOME.
--- NOTE | 2019-02-20 15:55 | NUR ---
PT IS RESTING IN BED WITH NO DISTRESS NOTED. IV SITE IS FREE FROM REDNESS OR EDEMA CONTINUE TO OSBERVE AND MONITOR.
--- NOTE | 2019-02-20 17:05 | NUR ---
GAVE REPORT TO CASSIE STARK ON MED/SURG
--- NOTE | 2019-02-20 17:40 | NUR ---
PT TRANSPORTED TO [facility] ROOM 279 VIA WC WITH STAFF, TOLERATED WELL. IV SITE IS FREE FROM REDNESS OR EDEMA. MEYER INTACT. DRESSING INTACT. SCD'S IN PLACE. PT ABLE TO GET OUT OF BED AND GET IN THE CHAIR WITH NO DISTRESS, C/O GAS PAIN WHEN MOVING
--- NOTE | 2019-02-20 18:56 | NUR ---
PT HAS LOW GRADE TEMP OF 100.4 MD AWARE. NEW ORDERS RECIEVED.
--- NOTE | 2019-02-20 19:05 | NUR ---
REPORT RECEIVED FROM MI MATTHEWS. PT RESTING IN BED. BOYFRIEND AT BEDSIDE. NO S/S OF DISTRESS AT THIS TIME. SAFETY PRECAUTIONS IN PLACE. WILL CONTINUE TO MONITOR.
[2019-02-21] VITALS (7 sets, daily range): BP systolic 99–121; BP diastolic 68–83
--- NOTE | 2019-02-21 00:10 | NUR ---
PT RESTING IN BED, NO S/S OF DISTRESS AT THIS TIME. MEYER DRAINING TO GRAVITY. WILL CONTINUE TO MONITOR.
--- NOTE | 2019-02-21 04:18 | NUR ---
PT RESTING IN BED, FRIEND AT BEDSIDE. RESPIRATIONS EVEN AND UNLABORED ON RA. NO S/S OF DISTRESS AT THIS TIME. SAFETY PRECAUTIONS IN PLACE. WILL CONTINUE TO MONITOR.
[2019-02-21 04:49] LABS: HEMATOCRIT 27.8 % (37.0-47.0); HEMOGLOBIN 8.9 g/dl (12.0-16.0); MEAN CELL VOLUME 85.8 fL CALC (80.0-100.0); MEAN CORPUSCULAR HGB 27.5 pG CALC (26.0-32.0); RED BLOOD COUNT 3.24 mill/uL (4.20-5.60); RED CELL DISTRI WIDTH 14.8 % (11.5-15.5)
[2019-02-21 05:06] LABS: ALBUMIN 2.4 g/dL (3.2-5.0); ALKALINE PHOSPHATASE 72 u/l (38-126); ANION GAP 9 (6-22 (CALC)); BILIRUBIN, TOTAL 0.8 mg/dL (0.0-1.4); BUN 6 mg/dL (8-23); BUN/CREATININE RATIO 11 (12-20 (CALC)); CARBON DIOXIDE 26 mmol/l (22-30); CHLORIDE 95 mmol/l (95-108); CREATININE 0.5 mg/dL (0.5-1.0); GFR > 60 ML/MIN (>=60 (CALC)); GFR FOR AFR.AMER. > 60 ML/MIN (>=60 (CALC)); POTASSIUM 3.2 mmol/l (3.5-5.1); SGOT/AST 32 u/l (9-36); SODIUM 127 mmol/l (137-146); TOTAL PROTEIN 6.2 g/dL (6.3-8.2)
--- NOTE | 2019-02-21 07:35 | NUR ---
PT RESTING IN BED, NO SIGNS OF DISTRESS NOTED, RESP EVEN AND UNLABORED. IS AT BEDSIDE, ENCOURAGED IT'S USE. ENCOURAGED AMBULATION WELL. DISCUSSED POC. PT ALERT AND ORIENTED X3, VOICES NO NEEDS OR COMPLAINTS AT THIS TIME. NO BM SINCE ADMISSION, ABD SOFT BUT DISTENDED, DRESSING TO ABD CDI, ABDOMINAL BINDER IN PLACE. MEYER DRAINING TO GRAVITY, ASSESSMENT COMPLETED, CALL LIGHT IN REACH,CONTINUE TO MONITOR.
--- NOTE | 2019-02-21 10:14 | NUR ---
PT SITTING IN RECLINER, DISCUSSED REMOVAL OF MEYER CATHETER, PT VERBALIZED UNDERSTANDING. BALLOON DEFLATED AND CATHETER REMOVED;INTACT. PT TOLERATED WELL. FÉLIX CARE DONE BY PT. CALL LIGHT IN REACH,CONTINUE TO MONITOR.
--- NOTE | 2019-02-21 10:20 | NUR ---
RN RADIOLOGY AT BEDSIDE
--- NOTE | 2019-02-21 10:30 | NUR ---
PT AMBULATING HALLWAY WITH SHINE WORKER, PT TOLERATING WELL.
--- NOTE | 2019-02-21 12:11 | NUR ---
AND LJ AT BEDSIDE.
--- NOTE | 2019-02-21 12:19 | NUR ---
PT ASSISTED TO BED, DEMI CONWAY. CALL LIGHT IN REACH,CONTINUE TO MONITOR.
--- NOTE | 2019-02-21 14:25 | NUR ---
PT AMBULATING HALLWAY WITH SHAREPOINT SOLUTIONS ARCHITECT, NO SIGNS OF DISTRESS NOTED, RESP EVEN AND UNLABORED. CONTINUE TO MONITOR.
--- NOTE | 2019-02-21 16:50 | NUR ---
PT RESTING IN BED, AFTER ATTEMPTS OF USING BATHROOM PT STATES SHE DOES NOT FEEL LIKE SHE HAS TO VOID. BLADDER SCANNED 419ML, PT MEDICATED FOR PAIN, PROCUREMENT FORESTER NOTIFIED ORDERS TO STRAIGHT CATH. #16F MEYER CATH INSERTED CLEAR YELLOW URINE NOTED IN TUBING, PT TOLERATED WELL, STAT LOCK IN PLACE. REMOVED 150CC FROM MEYER BAG. PT RESCANNED BUT SHOWS 667ML. NOTIFIED MD. ORDERED TO KEEP MEYER CATH AND ORDER U/S ABD TO EVALUATE FOR ASCITES. CALL LIGHT IN REACH,CONTINUE TO MONITOR.
--- NOTE | 2019-02-21 19:15 | NUR ---
REPORT RECEIVED FROM MI SCHNEIDER. PT RESTING IN BED. NO S/S OF DISTRESS AT THIS TIME. SAFETY PRCAUTIONS IN PLACE. WILL CONTINUE TO MONITOR.
--- NOTE | 2019-02-21 20:00 | NUR ---
PT RESTING IN BED ALERT AND ORIENTED. RESPIRATIONS EVEN AND UNLABORED ON RA. LUNGS SOUND CLEAR. PEDAL PULSES STRONG. PT DENIES ANY PAIN OR DISCOMFORT AT THIS TIME. MEYER DRAINING TO GRAVITY. ABD BINDER IN PLACE. DRESSING TO ABD CDI. #20 LFA PATENT AND APPAERS HEALTHY. PT ENCOURAGED TO CALL IF ANY NEEDS SHOULD ARISE. CALL CONNELLY WITHIN REACH. WILL CONTINUE TO MONITOR.
--- NOTE | 2019-02-22 00:52 | NUR ---
PT REPORTS PAIN OF A 7/10, PT MEDICATED PER EMAR ORDERS. PT DENIES ANY FURTHER NEEDS. SAFETY PRECAUTIONS IN PLACE. WILL CONTIUE TO MONITOR.
[2019-02-22 04:05] VITALS: BP 102/66
--- NOTE | 2019-02-22 04:36 | NUR ---
PT RESTING IN BED. RESPIRATIONS EVEN AND UNLABORED ON RA. MEYER DRAINING TO GRAVITY. SAFETY PRECAUTIONS IN PLACE. WILL CONTINUE TO MONITOR.
[2019-02-22 05:39] LABS: HEMATOCRIT 25.8 % (37.0-47.0); HEMOGLOBIN 8.4 g/dl (12.0-16.0); IMMATURE GRANULOCYTES 0.5 % (0.0-5.0); MEAN CELL VOLUME 85.4 fL CALC (80.0-100.0); MEAN CORPUSCULAR HGB 27.8 pG CALC (26.0-32.0); MEAN CORPUSCULAR HGB CONC 32.6 g/L CALC (32.0-36.0); NEUT# 5.57 thou/uL (2.00-7.15); RED BLOOD COUNT 3.02 mill/uL (4.20-5.60); RED CELL DISTRI WIDTH 14.5 % (11.5-15.5)
[2019-02-22 05:53] LABS: ALBUMIN 2.2 g/dL (3.2-5.0); ALKALINE PHOSPHATASE 86 u/l (38-126); ANION GAP 8 (6-22 (CALC)); BILIRUBIN, TOTAL 1.3 mg/dL (0.0-1.4); BUN 6 mg/dL (8-23); BUN/CREATININE RATIO 10 (12-20 (CALC)); CARBON DIOXIDE 25 mmol/l (22-30); CHLORIDE 97 mmol/l (95-108); CREATININE 0.6 mg/dL (0.5-1.0); GFR > 60 ML/MIN (>=60 (CALC)); GFR FOR AFR.AMER. > 60 ML/MIN (>=60 (CALC)); SGOT/AST 47 u/l (9-36); SODIUM 128 mmol/l (137-146); TOTAL PROTEIN 5.7 g/dL (6.3-8.2)
[2019-02-22 07:19] VITALS: BP 108/74
--- NOTE | 2019-02-22 07:20 | NUR ---
PT RESTING IN BED, NO SIGNS OF DISTRESS NOTED, RESP EVEN AND UNLABORED. PT ALERT AND ORIENTED X3, NO EDEMA, NOTED ABD MORE DISTENDED AND FIRM TODAY, DISCUSSED POC, DRESSING TO ABD CDI, ABD BINDER IN PLACE, BS HYPOACTIVE. PT STATES SHE IS PASSING GAS. MEYER DRAINING TO GRAVITY. IVF INFUSING. VSS. ASSESSMENT COMPLETED, CALL LIGHT IN REACH,CONTINUE TO MONITOR.
--- NOTE | 2019-02-22 08:22 | NUR ---
PT RESTING IN BED, DISCUSSED IV POTASSIUM, PT AGREES. INITIATED RAMIRO, EDUCATED ON INFUSION. HR IN PLACE. CALL LIGHT IN REACH,CONTINUE TO MONITOR.
--- NOTE | 2019-02-22 10:25 | NUR ---
PT TAKEN DOWN TO RADIOLOGY FOR ULTRASOUND. STABLE VIA WHEELCHAIR ACCOMPANIED BY STAFF.
--- NOTE | 2019-02-22 11:10 | NUR ---
PT RETURNED FROM ULTRASOUND, PT STABLE. WHILE PT WAS IN ULTRASOUND SIGNIFICANT OTHER WAS FOUND BY CLINICAL DIRECTOR'S IN PT'S PURSE AND HAD FOR CHANGE FOR A 50 DOLLAR BILL. INFORMED PT AND PT SPOKE TO SIGNIFICANT OTHER IN FRONT OF STAFF. PT CHECKED HER BELONGINS STATES SHE IS NOT MISSING HER MONEY. BUT S/O DENIED GOING THROUGH HER BELONGINS. PT IS REQUESTING THAT S/O NOT BE ALLOWED TO RETURN; SECURITY CALLED AND NOTIFIED. PBX NOTIFIED WELL.
[2019-02-22 11:27] VITALS: BP 123/86
--- NOTE | 2019-02-22 14:19 | NUR ---
PT AMBULATING IN HALLWAY, MEDICATED FOR PAIN, CALL LIGHT IN REACH,CONTINUE TO MONITOR.
[2019-02-22 15:08] VITALS: BP 115/88
--- NOTE | 2019-02-22 16:01 | NUR ---
PT RESTING IN BED, NO SIGNS OF DISTRESS NOTED, RESP EVEN AND UNLABORED. CALL LIGHT IN REACH,CONTINUE TO MONITOR.
--- NOTE | 2019-02-22 18:30 | NUR ---
PT ATE DINNER, TOLERATED WELL. CALL LIGHT IN REACH,CONTINUE TO MONITOR.
[2019-02-22 19:12] VITALS: BP 108/75
--- NOTE | 2019-02-22 20:09 | NUR ---
PT RESTING IN BED. ALERT AND ORIENTED. TELE IN PLACE. MEYER DRAINING TO GRAVITY. RESPIRATIONS EVEN AND UNLABORED ON RA, LUNGS SOUND CLEAR. PEDAL PULSES WEAK. DRESSING TO ABD CDI AND ABD BINDER IN PLACE. PT RESPORTS PAIN OF A 7/10, PT MEDICATED PER EMAR ORDERS. SAFETY PRECAUTIONS IN PLACE. WILL CONTINUE TO MONITOR.
[2019-02-22 23:30] VITALS: BP 105/71
--- NOTE | 2019-02-23 00:35 | NUR ---
PT RESTING IN BED. RESPIRATIONS EVEN AND UNLABORED ON RA. NO S/S OF DISTRESS AT THIS TIME. SAFETY PRECAUTIONS IN PLACE.
[2019-02-23 04:30] VITALS: BP 107/78
--- NOTE | 2019-02-23 04:45 | NUR ---
PT RESTING IN BED. RESPIRATIONS EVEN AND UNLABORED ON RA. NO S/S OF DISTRESS AT THIS TIME. SAFETY PRECAUTIONS IN PLACE. WILL CONTINUE TO MONITOR
[2019-02-23 05:29] LABS: ANION GAP 10 (6-22 (CALC)); BUN 6 mg/dL (8-23); BUN/CREATININE RATIO 10 (12-20 (CALC)); CARBON DIOXIDE 26 mmol/l (22-30); CHLORIDE 95 mmol/l (95-108); CREATININE 0.6 mg/dL (0.5-1.0); GFR > 60 ML/MIN (>=60 (CALC)); GFR FOR AFR.AMER. > 60 ML/MIN (>=60 (CALC)); SODIUM 127 mmol/l (137-146)
--- NOTE | 2019-02-23 07:05 | NUR ---
REPORT RECEIVED FROM DONNARN;PT RESTING IN SEMI FOWLERS POSITION;INTRODUCED SELF TO PT AND POC DISCUSSED;RESPIRATIONS EVEN AND UNLABORED ON RA;PT DENIES ANY CURRENT PAIN OR DISCOMFORTS;TELE MONITORING IN PLACE;PT DENIES ANY ADDITIONAL NEEDS AT THIS TIME AND IS ENCOURAGED TO CALL FOR ASSISTANCE IF NEEDED;FALL PRECAUTIONS IN PLACE WITH THE BED IN THE LOWEST POSITION AND CALL LIGHT IN REACH;WILL CONTINUE TO MONITOR
[2019-02-23 08:09] VITALS: BP 108/74
--- NOTE | 2019-02-23 08:10 | NUR ---
PT RESTING AT BEDSIDE EATING BREAKFAST,A&O X3;VS OBTAINED AND ASSESSMENT COMPLETED;PT DENIES ANY CURRENT PAIN OR DISCOMFORTS,PAIN SCALE AND REPORTING EDUCATED;PT POST OP HERNIA REPAIR 02/19/19;RESPIRATIONS EVEN AND UNLABORED ON RA,CLEAR LUNG SOUNDS;PT ENCOURAGED TO USE I.S. 10X PER HOUR AND VERBALIZES UNDERSTANDING;ABDOMEN DISTENDED/SOFT ON PALPATION AND HYPOACTIVE IN ALL 4 QUADRANTS;ABDOMINAL DRESSING AND BINDER IN PLACE;STRONG PEDAL PULSES;SKIN INTACT;TELE MONITORING NOTED;#20G TO LFA FLUSHED AND PATENT, KCL TO BE ADMINISTERED AT THIS TIME FOR POTASSIUM OF 3.0;MEYER CATETHER PATENT DRAINING TRISTON/CLEAR URINE TO GRAVITY WITH EASE,LEG STRAP IN PLACE;PT DENIES ANY ADDITIONAL NEEDS AT THIS TIME AND IS ENCOURAGED TO CALL FOR ASSISTANCE IF NEEDED;CALL LIGHT IN REACH;WILL CONTINUE TO MONITOR
--- NOTE | 2019-02-23 10:24 | NUR ---
PT AMBULATING THE HALLWAYS WITH A STEADY GAIT.
--- NOTE | 2019-02-23 11:05 | NUR ---
PT SIGNIFICANT OTHER ARRIVED WITH AGUAYO TO PT ROOM;PT AGREED TO LET SIGNIFICANT OTHER VISIT FOR "TWO MINS";[facility] OFFICE NOTIFIED.
--- NOTE | 2019-02-23 11:06 | NUR ---
PT SIGNIFICANT OTHER ESCORTED FROM [facility] BY [facility]. PT UNDERSTANDS THAT IF TRESPASSING WARRANT IS INITIATED SIGNIFICANT OTHER CAN NO LONGER VISIT OR STEP ON [facility],PT VERBALIZES UNDERSTANDING.
--- NOTE | 2019-02-23 11:17 | NUR ---
AT BEDSIDE DISCUSSING POC WITH PATIENT.
--- NOTE | 2019-02-23 11:25 | NUR ---
PT RESTING IN SEMI FOWLERS POSITION;RESPIRATIONS EVEN AND UNLABORED ON RA;PT DENIES ANY CURRENT PAIN OR DISCOMFORTS;ABDOMINAL DRESSING REMOVED PER AND OBSERVED BY ;INCISIONAL AREA WELL APPROX WITH SUTURES NOTED TO BE INTACT;ABD PAD AND PAPER TAPE APPLIED;TELE MONITORING IN PLACE; PT DENIES ANY ADDITIONAL NEEDS AT THIS TIME AND IS ENCOURAGED TO CALL FOR ASSISTANCE IF NEEDED;CALL LIGHT IN REACH;WILL CONTINUE TO MONITOR
[2019-02-23 11:35] VITALS: BP 113/83
--- NOTE | 2019-02-23 11:41 | NUR ---
XRAY AT BEDSIDE
[2019-02-23 15:40] VITALS: BP 109/77
--- NOTE | 2019-02-23 15:45 | NUR ---
PT RESTING IN SEMI FOWLERS POSITION;RESPIRATIONS EVEN AND UNLABORED ON RA;PT DENIES ANY CURRENT PAIN OR DISCOMFORTS;TELE MONITORING IN PLACE;IV SITE TO LFA PATENT;ASSESSMENT REMAINS UNCHANGED AT THIS TIME;ENCOURAGED TO CALL FOR ASSISTANCE IF NEEDED;CALL LIGHT IN REACH;WILL CONTINUE TO MONITOR
--- NOTE | 2019-02-23 17:36 | NUR ---
PT REPORTS ABDOMINAL PAIN RATING 9/10 ON THE PAIN SCALE AND REQUESTS PRN PAIN MEDICATION,PT MEDICATED WITH DILAUDID 1MG IVP,WILL CONTINUE TO MONITOR FOR EFFECTIVENESS
--- NOTE | 2019-02-23 18:18 | NUR ---
PT REQUESTS MEDICATION TO HELP ASSIST BOWEL MOVEMENT.WARM PRUNE JUICE PROVIDED. NOTIFIED AND NEW ORDERS RECEIVED.
--- NOTE | 2019-02-23 19:00 | NUR ---
RECEIVED REPORT FROM NURSE SHERRY, PATIENT RESTING IN BED C/O ABDOMINAL PAIN PS 11/26, WILL MEDICATE.
[2019-02-23 19:35] VITALS: BP 102/71
--- NOTE | 2019-02-23 22:00 | NUR ---
PATIENT STILL HAVING NO BOWEL MOVEMENT DUE MIRALAX GIVEN AND SUPPOSITORY.
--- NOTE | 2019-02-23 23:00 | NUR ---
PATIENT ALERT AND ORIENTED ABLE TO MAKE NEEDS KNOWN, WITH SALINE LOCK ON LFA PATENT FLUSHES WELL, REMAINS ON TELE, ABDOMEN HYPOACTIVE ON 4 QUADRANTS, REMAINS ON CLEAR LIQUID DIET, PATIENT ASSISTED TO BEDSIDE COMMODE SCANT AMOUNT OF LOOSE STOOL.
[2019-02-23 23:52] VITALS: BP 103/74
--- NOTE | 2019-02-24 01:00 | NUR ---
PATIENT APPEARS TO BE SLEEPING WITH EYES CLOSED, EVEN UNLABORED BREATHING CALL LIGHT AT REACH.
[2019-02-24 04:54] LABS: HEMATOCRIT 27.3 % (37.0-47.0); HEMOGLOBIN 8.8 g/dl (12.0-16.0); MEAN CORPUSCULAR HGB 27.4 pG CALC (26.0-32.0); MEAN CORPUSCULAR HGB CONC 32.2 g/L CALC (32.0-36.0); RED BLOOD COUNT 3.21 mill/uL (4.20-5.60); RED CELL DISTRI WIDTH 14.3 % (11.5-15.5)
[2019-02-24 05:07] LABS: ALBUMIN 2.6 g/dL (3.2-5.0); ALKALINE PHOSPHATASE 115 u/l (38-126); BILIRUBIN, TOTAL 1.2 mg/dL (0.0-1.4); BUN 4 mg/dL (8-23); BUN/CREATININE RATIO 7 (12-20 (CALC)); CARBON DIOXIDE 27 mmol/l (22-30); CHLORIDE 96 mmol/l (95-108); CREATININE 0.6 mg/dL (0.5-1.0); GFR > 60 ML/MIN (>=60 (CALC)); GFR FOR AFR.AMER. > 60 ML/MIN (>=60 (CALC)); SGOT/AST 54 u/l (9-36); SODIUM 129 mmol/l (137-146); TOTAL PROTEIN 6.3 g/dL (6.3-8.2)
[2019-02-24 05:08] LABS: ANION GAP 10 (6-22 (CALC)); POTASSIUM 3.9 mmol/l (3.5-5.1)
[2019-02-24 06:00] VITALS: BP 121/80
--- NOTE | 2019-02-24 06:00 | NUR ---
PATIENT C/O ABOMINAL PAIN PS 8/10 PRN DILAUDID GIVEN AT THIS TIME, WILL REEVALUATE.
--- NOTE | 2019-02-24 07:20 | NUR ---
REPORT RECEIVED FROM JORGE A ERWIN;PT RESTING IN SEMI FOWLERS POSITION;INTRODUCED SELF TO PT AND POC DISCUSSED;RESPIRATIONS EVEN AND UNLABORED ON RA;PT DENIES ANY CURRENT PAIN OR NEEDS;TELE MONITORING IN PLACE;ENCOURAGED PT TO CALL FOR ASSISTANCE IF NEEDED;FALL PRECAUTIONS IN PLACE WITH CALL LIGHT IN REACH;WILL CONTINUE TO MONITOR
[2019-02-24 09:08] VITALS: BP 112/73
--- NOTE | 2019-02-24 09:10 | NUR ---
PT OOB RESTING IN RECLINER,A&O X3;VS OBTAINED AND ASSESSMENT COMPLETED;PT DENIES ANY CURRENT PAIN OR DISCOMFORTS,PAIN SCALE AND REPORTING EDUCATED;RESPIRATIONS EVEN AND UNLABORED ON RA,CLEAR LUNG SOUNDS;ENCOURAGED I.S USAGE AND PT VERBALIZES UNDERSTANDING;ABDOMEN DISTENDED/FIRM ON PALPATION AND HYPOACTIVE IN ALL 4 QUADRANTS;ABDOMINAL INCISION DRESSING CDI AND ABDOMINAL BINDER IN PLACE;MEYER CATHETER PATENT DRAINING TRISTON URINE,STAT LOCK NOTED;STRONG PEDAL PULSES;SKIN INTACT;TELE MONITORING IN PLACE;IV SITE REMOVED BY PT WITH CATHETER INTACT;NEW #22G STARTED TO RAC ON 1ST ATTEMPT BY THIS WRITTER;PT MEDICATED WITH MIRLAX AND SUPPOSITORY AT THIS TIME;PT DENIES ANY ADDITIONAL NEEDS AND IS ENCOURAGED TO CALL FOR ASSISTANCE IF NEEDED;FALL PRECAUTIONS IN PLACE WITH CALL LIGHT IN REACH;WILL CONTINUE TO MONITOR
--- NOTE | 2019-02-24 10:16 | NUR ---
AT BEDSIDE DISCUSSING POC.
[2019-02-24 10:45] VITALS: BP 133/91
--- NOTE | 2019-02-24 11:30 | NUR ---
PT RESTING AT BEDSIDE WITH MULTIPLE FAMILY MEMBERS AT SIDE;RESPIRATIONS EVEN AND UNLABORED ON RA;PT REPORTS ABDOMINAL PAIN RATING 7/10 ON THE PAIN SCALE AND REQUESTS PAIN MEDICATION,PT TO BE MEDICATED WITH PRN DILAUDID 1MG IVP AND ABX TO BE ADMINISTERED;IV SITE TO RAC PATENT;TELE MONITORING IN PLACE;PT DENIES ANY ADDITIONAL NEEDS AND IS ENCOURAGED TO CALL FOR ASSISTANCE IF NEEDED;CALL LIGHT IN REACH;WILL CONTINUE TO MONITOR
[2019-02-24 14:45] VITALS: BP 116/80
--- NOTE | 2019-02-24 15:45 | NUR ---
PT RESTING IN SEMI FOWLERS POSITION WATCHING TV;RESPIRATIONS REMAIN EVEN AND UNLABORED ON RA;PT DENIES ANY CURRENT PAIN OR NEEDS;IV SITE TO RAC PATENT;TELE MONITORING IN PLACE;MEYER CATHETER CONTINUES TO HANG TO GRAVITY;ENCOURAGED PT TO CALL FOR ASSISTANCE IF NEEDED;CALL LIGHT IN REACH;WILL CONTINUE TO MONITOR
--- NOTE | 2019-02-24 17:15 | NUR ---
PT REPORTS ABDOMINAL PAIN RATING 7/10 ON THE PAIN SCALE AND REQUESTS PAIN MEDICATION, PT MEDICATED WITH PRN DILAUDID 1MG IVP AT THIS TIME;WILL MONITOR FOR EFFECTIVENESS
--- NOTE | 2019-02-24 19:30 | NUR ---
REPORT RECEIVED AND ROUNDS MADE. COMFORTABLE WITH NO REQUESTS AT THIS TIME. PAIN SCALE OF ZERO AFTER MED AT 1800. INSTRUCTED TO CALL FOR ASSISTANCE WITH ANYTHING AND DEMONSTRATED PROPER USE OF CALL LIGHT. REFER TO NURSING FLOWSHEET FOR COMPLETE ASSESSMENT.
[2019-02-24 19:45] VITALS: BP 116/83
--- NOTE | 2019-02-25 00:18 | NUR ---
MED FOR SURGICAL COMFORT CONTINUES. GIVES RELIEF BUT NEVER PAIN FREE. RELAXING WATCHING TV IN BED. HAS BEEN UP TO BS WITH SMALL BOWEL MOVEMENTS. ON TELE ST 101
[2019-02-25 00:40] VITALS: BP 103/72
[2019-02-25 04:15] VITALS: BP 108/76
--- NOTE | 2019-02-25 04:43 | NUR ---
PAIN MED IS HELPING BUT DOES NOT GET PT TO PAIN FREE STATE. ASSIST WITH REPOSITION OFTEN SIDE TO SIDE. REMAINS STABLE IN SR 96
[2019-02-25 05:04] LABS: HEMATOCRIT 26.9 % (37.0-47.0); HEMOGLOBIN 8.7 g/dl (12.0-16.0); MEAN CELL VOLUME 85.4 fL CALC (80.0-100.0); MEAN CORPUSCULAR HGB 27.6 pG CALC (26.0-32.0); MEAN CORPUSCULAR HGB CONC 32.3 g/L CALC (32.0-36.0); RED BLOOD COUNT 3.15 mill/uL (4.20-5.60); RED CELL DISTRI WIDTH 14.6 % (11.5-15.5)
[2019-02-25 05:28] LABS: ANION GAP 13 (6-22 (CALC)); BUN 4 mg/dL (8-23); BUN/CREATININE RATIO 8 (12-20 (CALC)); CARBON DIOXIDE 25 mmol/l (22-30); CHLORIDE 95 mmol/l (95-108); CREATININE 0.5 mg/dL (0.5-1.0); GFR > 60 ML/MIN (>=60 (CALC)); GFR FOR AFR.AMER. > 60 ML/MIN (>=60 (CALC)); MAGNESIUM 1.6 mg/dL (1.6-2.3); POTASSIUM 3.8 mmol/l (3.5-5.1); SODIUM 129 mmol/l (137-146)
--- NOTE | 2019-02-25 07:00 | NUR ---
PT RESTING IN BED NO S/S OF DISTRESS NOTED. CALL CONNELLY IN REEACH. WILL CONTINUE TO MONITOR.
--- NOTE | 2019-02-25 08:30 | NUR ---
PT RESTING IN BED WATCHING TV. MEYER CATH IN PLACE DRAINING CLEAR YELLOW URINE. ASSESSMENT COMPLETED AT THIS TIME. NO NEEDS AT THIS TIME. ABD BINDER IN PLACE. DRESSING IN PLACE. WILL CONTINUE TO MONITOR.
[2019-02-25] MEDS ORDERED: OXYCODONE10 M1 PO (10:59)
[2019-02-25] MEDS ORDERED: LASIX 20 MG TAB20 MG PO (10:59)
[2019-02-25 11:03] VITALS: BP 108/81
[2019-02-25] MEDS ORDERED: AMOX/K CLAV875 M1 PO (11:04)
--- NOTE | 2019-02-25 12:00 | NUR ---
PT RESTING IN BED AWAITING DC DRESSING TO ABD REMOVED. WILL CONTINUE TO MONITOR.
--- NOTE | 2019-02-25 12:45 | NUR ---
MEYER CATH REMOVED AT THIS TIME. PT WILL HAVE TO PEE PER MD BEFORE DC. WILL CONTINUE TO MONITOR.
--- NOTE | 2019-02-25 16:04 | NUR ---
BLADDER SCANNED PER MD. 869 MLS RETENTION AT THIS TIME. MD AWARE.
[2019-02-25 16:09] VITALS: BP 124/90
--- NOTE | 2019-02-25 16:49 | NUR ---
NEW MEYER PLACED ATT THIS TIME. #16F MEYER PLACED USING STERILE TECHNIQUE. TOLREATED WELL
--- NOTE | 2019-02-25 19:05 | NUR ---
REPORT FROM IMELDA JULES. PT ALERT AND ORIENTED. RESTING IN BED. PT C/O ABD PAIN 12/27. WILL MEDICATE SOON AVAILABLE. ENCOURAGED REPOSITIONING AT THIS TIME. INCISION APPEARS CDI. DISCUSSED POC. PT VERBALIZED UNDERSTANDIND. MEYER CATHETER PATENT DRAINING TO GRAVITY. PT DENIES ANY FURTHER WANTS OR NEEDS. CALL LIGHT WITHIN REACH. WILL CONTINUE TO MONITOR.
--- NOTE | 2019-02-25 19:18 | NUR ---
PT MEDICATED WITH IV DILAUDID AT THIS TIME. WILL CONTINUE TO MONITOR.
[2019-02-25 19:20] VITALS: BP 95/62
--- NOTE | 2019-02-25 22:07 | NUR ---
PO APAP ADMINISTERED UPON REQUEST FOR PAIN LEVEL 2/10. MITCH REMAINS PATENT. FRESH ICE WATER AND APPLE JUICE PROVIDED AT THIS TIME.
--- NOTE | 2019-02-26 02:32 | NUR ---
PT MEDICATED FOR ABD PAIN 6-10 WITH IV DILAUDID. PT PASSING A LOT OF GAS AT THIS TIME. ENCOURAGED TO REPOSITION FOR COMFORT. INFORMED PT SON REMY CALLED AND WISHED TO BE CALLED BACK. PT DENIES ANY OTHER WANTS OR NEEDS. CALL LIGHT WITHIN REACH. WILL CONTINUE TO MONITOR.
[2019-02-26 03:45] VITALS: BP 104/71
--- NOTE | 2019-02-26 06:36 | NUR ---
PT RESTING IN BED WITH EYES CLOSED. NO APPARENT DISTRESS NOTED. CALL LIGHT WITHIN REACH. WILL CONTINUE TO MONITOR.
[2019-02-26 07:41] VITALS: BP 102/66
--- NOTE | 2019-02-26 07:53 | NUR ---
SHIFT CHANGE REPORT, PT AWAKE ALERT AND ORIENTED RESTING IN BED, C/O OF MILD ABDOMINAL PAIN, ABD DISTENDED WITH NIKOLAY INTACT TO LOWER REGION, ALL NEEDS ADDRESSED, CALL CONNELLY IN REACH.
--- NOTE | 2019-02-26 10:27 | NUR ---
Discharge instructions given. Patient verbalizes understanding of same. Discharged in stable condition via Wheelchair to Home with friend. All belongings sent with pt. HOME WITH HOME HEALTH
== END 2019-02-26 10:10 | disposition home health service (06) | DRG 330 ==
LOC: ED 13:42 → ED-I 13:57 → ED 14:10 → MS2 14:11 → ICU 17:50 → MS2 02-20 17:40
PROVIDERS: Nurse Practitioner Family; ADMIT Surgery; ATTEND Internal Medicine
PROC: 0WQF0ZZ Repair Abdominal Wall, Open Approach (ICD-10-PCS; principal; 2019-02-19)
PROC: 0DB80ZZ Excision of Small Intestine, Open Approach (ICD-10-PCS; 2019-02-19)
PROC: 0W9G0ZZ Drainage of Peritoneal Cavity, Open Approach (ICD-10-PCS; 2019-02-19)
PROC: 0T9B70Z Drainage of Bladder with Drainage Device, Via Natural or Artificial Opening (ICD-10-PCS; 2019-02-25)
DX: K42.0 Umbilical hernia with obstruction, without gangrene (principal); K55.8 Other vascular disorders of intestine; E87.1 Hypo-osmolality and hyponatremia; K56.7 Ileus, unspecified; E87.6 Hypokalemia; K70.31 Alcoholic cirrhosis of liver with ascites; F10.229 Alcohol dependence with intoxication, unspecified; B19.20 Unspecified viral hepatitis C without hepatic coma; R33.9 Retention of urine, unspecified; D72.829 Elevated white blood cell count, unspecified; R50.82 Postprocedural fever; K70.11 Alcoholic hepatitis with ascites; F17.200 Nicotine dependence, unspecified, uncomplicated; Y90.6 Blood alcohol level of 120-199 mg/100 ml; Z85.42 Personal history of malignant neoplasm of other parts of uterus
CPT/HCPCS: J0131; J1100; J2710; S0164

== ENCOUNTER 2019-05-06 23:18 | Emergency (ER) | payer OTHER ==
[~2019-05-06] VITALS: Ht 175.3 cm; Wt 61.0 kg
[~2019-05-06 23:18] MED LIST changes: +LASIX 20 MG TAB20 MG PO; +OMEPRAZOLE20 MG PO; +OXYCODONE10 M1 PO
[2019-05-06 23:38] LABS: HEMOGLOBIN 7.8 g/dl (12.0-16.0); IMMATURE GRANULOCYTES 0.3 % (0.0-5.0); MEAN CELL VOLUME 88.2 fL CALC (80.0-100.0); MEAN CORPUSCULAR HGB 28.7 pG CALC (26.0-32.0); MEAN CORPUSCULAR HGB CONC 32.5 g/L CALC (32.0-36.0); NEUT# 4.23 thou/uL (2.00-7.15); RED BLOOD COUNT 2.72 mill/uL (4.20-5.60); RED CELL DISTRI WIDTH 20.4 % (11.5-15.5)
[2019-05-07 00:12] LABS: BILIRUBIN, TOTAL 1.1 mg/dL (0.0-1.4); CREATININE 1.2 mg/dL (0.5-1.0); POTASSIUM 4.2 mmol/l (3.5-5.1)
[2019-05-07 00:13] LABS: ALBUMIN 3.3 g/dL (3.2-5.0); TOTAL PROTEIN 8.4 g/dL (6.3-8.2)
[2019-05-07 00:49] LABS: URINE BILIRUBIN - DIPSTICK NEGATIVE (NEGATIVE); URINE BLOOD DIPSTICK MODERATE (NEGATIVE); URINE COLOR YELLOW; URINE GLUCOSE - DIPSTICK NEGATIVE (NEGATIVE); URINE KETONE NEGATIVE (NEGATIVE); URINE PH 5.5 (4.5-8.0); URINE PROTEIN - DIPSTICK NEGATIVE (NEG-TRACE)
[2019-05-07 01:00] LABS: URINE LEUK ESTERASE MODERATE (NEGATIVE); URINE NITRITE - DIPSTICK POSITIVE (Negative)
[2019-05-07 01:01] LABS: BARBITURATES NEGATIVE (NEGATIVE); COCAINE NEGATIVE (NEGATIVE); METHADONE NEGATIVE (NEGATIVE); OXCYCODONE NEGATIVE (NEGATIVE); TETRAHYDROCANNABIONOL NEGATIVE (NEGATIVE); TRICYLIC ANTIDEPRESSANTS NEGATIVE (NEGATIVE)
[2019-05-07 01:09] LABS: URINE BACTERIA MANY hpf; URINE RBC 25-50 RBC/hpf (0-5); URINE SQUAMOUS EPITHELIAL CELL FEW EPI/hpf (0-FEW); URINE WBC 20-50 WBC/hpf (0-5)
[2019-05-07 03:17] VITALS: BP 92/65
== END 2019-05-07 03:16 | disposition short-term general hospital (02) ==
LOC: ED 23:18
PROVIDERS: Family Medicine
DX: K80.71 Calculus of gallbladder and bile duct without cholecystitis with obstruction (principal); N39.0 Urinary tract infection, site not specified; B96.20 Unspecified Escherichia coli [E. coli] as the cause of diseases classified elsewhere; R18.8 Other ascites; F17.200 Nicotine dependence, unspecified, uncomplicated; Z01.818 Encounter for other preprocedural examination

== ENCOUNTER 2019-05-17 | Emergency (ER) | payer OTHER ==
[2019-05-17] MEDS ORDERED: SPIRONOLACT100 MG PO (21:10)
[2019-05-17 21:27] LABS: HEMATOCRIT 26.7 % (37.0-47.0); HEMOGLOBIN 8.5 g/dl (12.0-16.0); IMMATURE GRANULOCYTES 0.2 % (0.0-5.0); MEAN CELL VOLUME 87.8 fL CALC (80.0-100.0); MEAN CORPUSCULAR HGB CONC 31.8 g/L CALC (32.0-36.0); NEUT# 2.44 thou/uL (2.00-7.15); RED BLOOD COUNT 3.04 mill/uL (4.20-5.60)
[2019-05-17 21:37] LABS: ALBUMIN 3.4 g/dL (3.2-5.0); ALKALINE PHOSPHATASE 118 u/l (38-126); AMYLASE 172 u/l (30-110); ANION GAP 12 (6-22 (CALC)); BUN 20 mg/dL (8-23); BUN/CREATININE RATIO 23 (12-20 (CALC)); CARBON DIOXIDE 26 mmol/l (22-30); CHLORIDE 98 mmol/l (95-108); CREATININE 0.9 mg/dL (0.5-1.0); GFR > 60 ML/MIN (>=60 (CALC)); GFR FOR AFR.AMER. > 60 ML/MIN (>=60 (CALC)); LIPASE 222 u/l (23-300); POTASSIUM 3.6 mmol/l (3.5-5.1); SGOT/AST 45 u/l (9-36); SODIUM 132 mmol/l (137-146); TOTAL PROTEIN 8.5 g/dL (6.3-8.2)
[2019-05-17 21:41] LABS: BILIRUBIN, TOTAL 0.5 mg/dL (0.0-1.4)
[2019-05-17 23:42] LABS: URINE BILIRUBIN - DIPSTICK NEGATIVE (NEGATIVE); URINE BLOOD DIPSTICK NEGATIVE (NEGATIVE); URINE COLOR YELLOW; URINE GLUCOSE - DIPSTICK NEGATIVE (NEGATIVE); URINE KETONE NEGATIVE (NEGATIVE); URINE LEUK ESTERASE NEGATIVE (NEGATIVE); URINE NITRITE - DIPSTICK NEGATIVE (Negative); URINE PROTEIN - DIPSTICK NEGATIVE (NEG-TRACE); URINE UROBILINOGEN - DIPSTICK 0.2 E.U./dL (0.2)
[2019-12-24] MEDS ORDERED: LITHIUM CARB300 MG PO (12:44)
[2019-12-24] MEDS ORDERED: LASIX 20 MG TAB20 MG PO (12:45)
== END 2019-05-18 01:20 | disposition left against medical advice (07) ==
PROVIDERS: Emergency Medicine
DX: K70.31 Alcoholic cirrhosis of liver with ascites (principal); D64.9 Anemia, unspecified; B19.20 Unspecified viral hepatitis C without hepatic coma; Z90.49 Acquired absence of other specified parts of digestive tract; Z91.19 Patient's noncompliance with other medical treatment and regimen
CPT/HCPCS: S0164

== ENCOUNTER 2019-07-04 | Observation (INO) | payer OTHER ==
[~2019-07-04] MED LIST changes: +SPIRONOLACT100 MG PO
[2019-07-04 08:29] LABS: HEMATOCRIT 30.4 % (37.0-47.0); HEMOGLOBIN 9.7 g/dl (12.0-16.0); MEAN CELL VOLUME 86.9 fL CALC (80.0-100.0); MEAN CORPUSCULAR HGB 27.7 pG CALC (26.0-32.0); MEAN CORPUSCULAR HGB CONC 31.9 g/L CALC (32.0-36.0); NEUT# 2.52 thou/uL (2.00-7.15); RED BLOOD COUNT 3.5 mill/uL (4.20-5.60); RED CELL DISTRI WIDTH 15.2 % (11.5-15.5)
[2019-07-04 08:41] LABS: ALBUMIN 3.8 g/dL (3.2-5.0); ALKALINE PHOSPHATASE 125 u/l (38-126); ANION GAP 13 (6-22 (CALC)); BILIRUBIN, TOTAL 0.5 mg/dL (0.0-1.4); BUN 11 mg/dL (8-23); BUN/CREATININE RATIO 17 (12-20 (CALC)); CARBON DIOXIDE 26 mmol/l (22-30); CHLORIDE 101 mmol/l (95-108); CREATININE 0.6 mg/dL (0.5-1.0); GFR > 60 ML/MIN (>=60 (CALC)); GFR FOR AFR.AMER. > 60 ML/MIN (>=60 (CALC)); LIPASE 144 u/l (23-300); POTASSIUM 4.1 mmol/l (3.5-5.1); SGOT/AST 45 u/l (9-36); SODIUM 136 mmol/l (137-146); TOTAL PROTEIN 8.9 g/dL (6.3-8.2)
[2019-07-04 10:06] LABS: PROTHROMBIN TIME 10.7 SECONDS (9.0-12.5)
[2019-07-04 10:40] LABS: URINE BILIRUBIN - DIPSTICK NEGATIVE (NEGATIVE); URINE BLOOD DIPSTICK NEGATIVE (NEGATIVE); URINE COLOR YELLOW; URINE GLUCOSE - DIPSTICK NEGATIVE (NEGATIVE); URINE KETONE NEGATIVE (NEGATIVE); URINE LEUK ESTERASE NEGATIVE (NEGATIVE); URINE NITRITE - DIPSTICK NEGATIVE (Negative); URINE PROTEIN - DIPSTICK NEGATIVE (NEG-TRACE); URINE UROBILINOGEN - DIPSTICK 0.2 E.U./dL (0.2)
[2019-12-24] MEDS ORDERED: LITHIUM CARB300 MG PO (12:44)
[2019-12-24] MEDS ORDERED: LASIX 20 MG TAB20 MG PO (12:45)
== END 2019-07-04 14:00 | disposition home or self-care (01) ==
PROVIDERS: Family Medicine; ADMIT Internal Medicine
DX: K42.9 Umbilical hernia without obstruction or gangrene (principal); K40.90 Unilateral inguinal hernia, without obstruction or gangrene, not specified as recurrent; K70.31 Alcoholic cirrhosis of liver with ascites; B19.20 Unspecified viral hepatitis C without hepatic coma; F17.200 Nicotine dependence, unspecified, uncomplicated
CPT/HCPCS: G0378

== ENCOUNTER 2019-07-09 | Day surgery (SDC) | payer OTHER ==
[2019-07-09] MEDS ORDERED: PERCOCET 5/325M1 TAB PO (11:37)
[2019-12-24] MEDS ORDERED: LITHIUM CARB300 MG PO (12:44)
[2019-12-24] MEDS ORDERED: LASIX 20 MG TAB20 MG PO (12:45)
== END 2019-07-09 13:05 | disposition home or self-care (01) ==
DX: K40.90 Unilateral inguinal hernia, without obstruction or gangrene, not specified as recurrent (principal); K43.2 Incisional hernia without obstruction or gangrene; K74.60 Unspecified cirrhosis of liver; B19.20 Unspecified viral hepatitis C without hepatic coma; R18.8 Other ascites
CPT/HCPCS: C9290; J0131; J1100; P9047

== ENCOUNTER 2019-12-02 11:07 | Emergency (ER) | payer OTHER ==
[~2019-12-02] VITALS: Ht 175.3 cm; Wt 72.0 kg
[2019-12-02 11:31] LABS: HEMATOCRIT 30.7 % (37.0-47.0); HEMOGLOBIN 9.9 g/dl (12.0-16.0); IMMATURE GRANULOCYTES 0.4 % (0.0-5.0); MEAN CORPUSCULAR HGB 27.4 pG CALC (26.0-32.0); MEAN CORPUSCULAR HGB CONC 32.2 g/dL CAL (32.0-36.0); NEUT# 3.08 thou/uL (2.00-7.15); RED BLOOD COUNT 3.61 mill/uL (4.20-5.60); RED CELL DISTRI WIDTH 16.7 % (11.5-15.5)
[2019-12-02] MEDS ORDERED: LIPITOR10 M1 PO (11:39)
[2019-12-02 11:47] LABS: INTERNATIONAL NORMALIZED RATIO 1.1 RATIO (0.7-1.3); PROTHROMBIN TIME 10.6 SECONDS (9.0-12.5)
[2019-12-02 12:02] LABS: ALBUMIN 4.3 g/dL (3.2-5.0); CREATININE 1.4 mg/dL (0.5-1.0); POTASSIUM 4.4 mmol/l (3.5-5.1); TOTAL PROTEIN 8.8 g/dL (6.3-8.2)
[2019-12-02 12:05] LABS: BILIRUBIN, TOTAL 0.8 mg/dL (0.0-1.4)
[2019-12-02] MEDS ORDERED: MOTRIN400 MG PO (12:09)
[2019-12-02 12:36] VITALS: BP 99/64
[2019-12-24] MEDS ORDERED: LITHIUM CARB300 MG PO (12:44)
[2019-12-24] MEDS ORDERED: LASIX 20 MG TAB20 MG PO (12:45)
== END 2019-12-02 12:44 | disposition home or self-care (01) ==
LOC: ED 11:07
PROVIDERS: Family Medicine
DX: K42.9 Umbilical hernia without obstruction or gangrene (principal); K74.60 Unspecified cirrhosis of liver; B19.20 Unspecified viral hepatitis C without hepatic coma

== ENCOUNTER 2020-01-12 08:02 | Day surgery (SDC) | payer OTHER ==
[2020-01-12] VITALS (8 sets, daily range): BP systolic 97–120; BP diastolic 57–76
[~2020-01-12] VITALS: Ht 167.6 cm; Wt 75.5 kg
[~2020-01-12 08:02] MED LIST changes: +LIPITOR10 M1 PO; +LITHIUM CARB300 MG PO; +MOTRIN400 MG PO
--- NOTE | 2020-01-12 13:21 | NUR ---
PT ARRIVED TO UNIT VIA BED WITH OR STAFF; BEDSIDE REPORT RECEIVED FROM YAMILET. PT AWAKE; ALERT AND ORIENTED. C/O 10/10 ABDOMINAL PAIN; ABDOMINAL BINDER IN PLACE. FLUIDS INFUSING INTO IV SITE TO LFA; SITE APPEARS HEALTHY. OXYGEN 2L NC. VSS. SCDS APPLIED AND IS PLACED AT BEDSIDE. ABDOMINAL BINDER REMOVED WITH OR NURSE TO ASSESS ABDOMEN; 6 LAP SITES WELL APPROXIMATED WITH DERMABOND; ABDOMEN DISTENDED WITH VERY HYPOACTIVE BS; BINDER REPLACED. SAFETY MEASURES IN PLACE. CALL LIGHT WITHIN REACH.
--- NOTE | 2020-01-12 14:00 | NUR ---
PT STATES THAT HER PAIN HAS DECREASED ON ITS OWN TO AN 8/10; SCHEDULED TORADOL GIVEN. PT NOW RESTING WITH EYES CLOSED AND NO SIGNS OF DISTRESS. ASSESSMENT COMPLETED.
--- NOTE | 2020-01-12 14:40 | NUR ---
LJ WORKMAN AT BEDSIDE FOR EVAL AND TO DISCUSS H&P. PT ALERT, AWAKE, AND ANSWERING ALL QUESTIONS TO SATISFACTION. LR INFUSING AT 100 ML/HR. POST OP VS REMAIN STABLE.
--- NOTE | 2020-01-12 16:33 | NUR ---
BLOOD PRESSURE DOWN TO 90/62; HR 72; SPO2 100% ON OXYGEN. PT ASLEEP. WILL CONTINUE TO MONITOR.
--- NOTE | 2020-01-12 18:58 | NUR ---
ANCEF INFUSING. SCHEDULED TORDOL GIVEN. PT ASLEEP. AROUSES TO VERBAL STIMULI. SAFETY MEASURES IN PLACE INCLUDING BED ALARM. NO SIGNS OF DISTRESS.
--- NOTE | 2020-01-12 22:06 | NUR ---
PT PROVIDED SOMETHING SOFT TO EAT. SHE HAS BEEN EATING ICE CHIPS AND NOW DRINKING WATER, TOLERATING WELL AND DENIES NAUSEA. NO ISSUES SWALLOWING.
--- NOTE | 2020-01-12 23:02 | NUR ---
PT SLEEPING AT THIS TIME. NO S/O DISTRESS. WILL CONTINUE TO MONITOR.
[2020-01-13 00:18] VITALS: BP 88/62
--- NOTE | 2020-01-13 01:20 | NUR ---
PT SLEEPING, NO S/O DISTRESS, PT SNORING SOFTLY AND SOME SMALL MOVEMENT VISUALIZED. IVF REPLENISHED, CALL LIGHT AT SIDE.
--- NOTE | 2020-01-13 03:00 | NUR ---
ASSISTED PT TO RESTROOM AND BACK TO BED. PT DENIES REPLACING SCD'S AT THIS TIME, HAS BEEN WEARING THEM ALL NIGHT. PT TOLERATED SELF AMBULATING TO RESTROOM AND BACK VERY WELL. BINDER IN PLACE CDI
--- NOTE | 2020-01-13 03:29 | NUR ---
ANTIBIOTIC THERAPY ADMINISTERED AT THIS TIME. PT IS SLEEPING SOUNDLY, LIGHT BREATH SOUNDS AUDIBLE. NO S/O DISTRESS NOTED.
[2020-01-13 04:03] VITALS: BP 92/65
[2020-01-13 05:03] LABS: HEMATOCRIT 29.6 % (37.0-47.0); MEAN CELL VOLUME 90.2 fL CALC (80.0-100.0); MEAN CORPUSCULAR HGB 27.4 pG CALC (26.0-32.0); MEAN CORPUSCULAR HGB CONC 30.4 g/dL CAL (32.0-36.0); RED BLOOD COUNT 3.28 mill/uL (4.20-5.60); RED CELL DISTRI WIDTH 17.1 % (11.5-15.5)
--- NOTE | 2020-01-13 05:28 | NUR ---
PT MEDICATED FOR PAIN, NO S/O DISTRESS NOTED. PT'S EYES CLOSED.
[2020-01-13 05:44] LABS: ANION GAP 11 (6-22 (CALC)); BUN 19 mg/dL (8-23); BUN/CREATININE RATIO 19 (12-20 (CALC)); CARBON DIOXIDE 23 mmol/l (22-30); CHLORIDE 101 mmol/l (95-108); GFR 56 ML/MIN (>=60 (CALC)); GFR FOR AFR.AMER. > 60 ML/MIN (>=60 (CALC)); MAGNESIUM 1.7 mg/dL (1.6-2.3); POTASSIUM 4.4 mmol/l (3.5-5.1); SODIUM 131 mmol/l (137-146)
--- NOTE | 2020-01-13 06:34 | NUR ---
PT REPORTS TO [employer] ENGINE[employer] THAT SHE DOES NOT NEED HER SUGAR CHECKED BECAUSE SHE IS NOT DIABETIC. I AM NOT FINDING HISTORY OF DIABETES FOR PT. WILL ALERT DAY SHIFT OF PT REPORT AND REFUSAL FOR ACCU CHECK.
--- NOTE | 2020-01-13 07:45 | NUR ---
REPORT RECEIVED FROM JORGE A BALES. PT RESTING IN BED SEMI FOWLERS; ALERT AND OREINTED. DENIES PAIN CURRENTLY; ABDOMINAL BINDER IN PLACE. RESPIRATIONS EVEN AND UNLABORED ON ROOM AIR; SPO2 97%. PT HAS NO COMPLAINTS AND STATES SHE WANTS TO GO HOME. IV FLUIDS INFUSING WITHOUT DIFFICULTY; IV SITE APPEARS HEALTHY. PLAN OF CARE REVIEWED. PT ENCOURAGED TO VERBALIZE CONCERNS. STATES UNDERSTANDING. SAFETY MEASURES IN PLACE. CALL LIGHT WITHIN REACH.
[2020-01-13 08:14] VITALS: BP 89/60
--- NOTE | 2020-01-13 08:21 | NUR ---
DR. OLMOS AT BEDSIDE.
--- NOTE | 2020-01-13 11:20 | NUR ---
DR. SERNA AT BEDSIDE FOR EVAL. OK FOR DC. PT AWARE OF F/U APPOINTMENT WITH DR. SERNA ON 01/22/20 AT 1030.
--- NOTE | 2020-01-13 11:39 | NUR ---
IV site discontinued, cath intact. No edema , no redness, voices no discomfort.
--- NOTE | 2020-01-13 12:37 | NUR ---
PERCOCET GIVEN FOR ABDOMINAL PAIN. PT CALLED INSURANCE TO ARRANGE TRANSPORTATION TO [facility]. DRESSED AND SITTING UP ON COUCH WITH ABDOMINAL BINDER IN PLACE.
--- NOTE | 2020-01-13 16:27 | NUR ---
Discharge instructions given. Patient verbalizes understanding of same. Discharged in stable condition via Wheelchair to Home [place] with staff. Medicated for pain with percocet prior to dischrage. All belongings sent with pt.
== END 2020-01-13 16:27 | disposition home or self-care (01) ==
LOC: ORM 08:02 → MS2 13:25 → ORM 01-13 16:27
PROVIDERS: Nurse Practitioner; ATTEND Surgery
DX: K43.2 Incisional hernia without obstruction or gangrene (principal); K74.60 Unspecified cirrhosis of liver; R18.8 Other ascites; B19.20 Unspecified viral hepatitis C without hepatic coma; Z11.59 Encounter for screening for other viral diseases
CPT/HCPCS: C1781; J2710